=== PATIENT | female | born 1945 | race Caucasian/White ===

== ENCOUNTER 2020-06-04 15:15 | Outpatient (CLI) | payer MEDICARE, SELFPAY ==
--- NOTE | 2020-06-04 15:32 | US_ITS ---
WS: [id number] EXAM: THYROID SONOGRAM DATE OF EXAMINATION: 06/04/2020, 1541 hours COMPARISON: None. HISTORY: Hyperparathyroidism. FINDINGS: The thyroid gland is surgically absent. No evidence of adenopathy or mass in the surgical bed is iden tified. US/US thyroid [id number] IMPRESSION: No appreciable appearance of thyroid tissue or mass/adenopathy in the thyroid b ed.
== END 2020-06-04 15:16 | disposition home or self-care (01) ==
LOC: US 15:18
PROVIDERS: PCP Family Medicine; Visit Provider Family Medicine
DX: E21.3 Hyperparathyroidism, unspecified (principal)
CPT/HCPCS: 76536

== ENCOUNTER 2020-10-03 15:31 | Outpatient (CLI) | payer MEDICARE, SELFPAY ==
--- NOTE | 2020-10-03 15:37 | US_ITS ---
WS: [id number] ULTRASOUND RENAL TECHNIQUE: Ultrasound examination of both kidneys. CLINICAL INFORMATION: CHRONIC KIDNEY DISEASE, STAGE 3 COMPARISON: None. FINDINGS: RIGHT: Right kidney is normal in size and appearance. Echogenicity: Normal. Cortical thickness: 0.8 cm; Normal. Hydronephrosis: None. Perinephric fluid: None. Right kidney measures: 9.9 cm x 4.2 cm x 4.0 cm. LEFT: Left kidney is normal in size and appearance. Echogenicity: Normal. Cortical thickness: 1.1 cm; Normal. Hydronephrosis: None. Perinephric fluid: None. Left kidney measures: 11.2 cm x 5.7 cm x 4.4 cm. Normal visualized aorta. Bladder is decompressed US/US renal BI* [id number] IMPRESSION: Technically difficult examination due to body habitus. 1. No hydronephrosis in either kidney. 2. Bladder is decompressed.
== END 2020-10-03 15:32 | disposition home or self-care (01) ==
LOC: US 15:32
PROVIDERS: PCP Family Medicine; Visit Provider Internal Medicine Nephrology
DX: N18.31 Chronic kidney disease, stage 3a (principal)
CPT/HCPCS: 76770

== ENCOUNTER 2021-04-16 12:41 | Inpatient (IN) | payer MEDICARE, SELFPAY ==
[2021-04-16 14:37] VITALS: BP 109/63; PULSE 64; RESP 18; TEMP 36.6; O2SAT 85; BMI 48.0
--- NOTE | 2021-04-16 14:49 | XR_ITS ---
WS: [id number] XR chest 1V portable [id number] REASON FOR EXAM: SOB FINDINGS: Mild tortuosity the thoracic aorta without aneurysmal dilatation. The heart is at the upper limits of normal in size. Calcified granulomatous changes in both hemithoraces. No acute pulmonary parenchymal or pleural abnor mality is noted. Moderate degenerative spondylosis in the mid and lower thoracic spine. XR/XR chest 1V portable [id number] IMPRESSION: No acute chest abnormality.
--- NOTE | 2021-04-16 14:49 | ECG_ITS ---
[facility] ED Test Date: 2021-04-16 Pat Name: Bree Chapa Department: Room: Gender: Female Filling Hand: : 1945 Requested By: Anna Negrete Order Number: [id number] Charlene MD: Evlie Moreno M.D. Measurements Intervals [place] Rate: 63 P: 14 [place]: 188 QRS: 34 QRSD: 90 T: 73 QT: 416 QTc: 426 Interpretive Statements SINUS RHYTHM Compared to ECG 05/10/2019 18:06:25 Sinus bradycardia no longer present First degree AV block no longer present T-wave abnormality no longer present Electronically Signed On 04-20-2021 0:22:01 CDT by Elvie Moreno M.D. [id number]
--- NOTE | 2021-04-16 15:39 | W.ED.COVID ---
HPI - COVID General: Chief Complaint: Shortness of Breath/Dyspnea Stated Complaint: COVID+:LOW 02 (80s), SOB Time Seen by Provider: 04/16/21 15:19 Triage information: Has fever, cough or shortness of breath. Exposure to COVID + person last 14 days History of Present Illness: HPI Narrative: The patient is a 75-year-old female with past medical history hypertension and diabetes as well as thyroid disease. She comes to the ER complaining of shortness of breath and that her oxygen levels have been low at home in the upper 80s. She says she took a home Covid test 3 days ago which was positive and became sick on the initially. She recently finished a course of amoxicillin for a sinus infection but has not had any steroids. On arrival her oxygen saturation is 85% on room air. Placed on 3 L she is in the low 90s. MD complaint: known COVID positive Prior covid testing: yes, results known COVID 19 common symptoms: positive chills, dyspnea, fatigue and headache(s); negative throat pain, nasal congestion or diarrhea COVID 19 other sytmptoms: positive requiring oxygen; negative chest pain Onset (ago): day(s) (7) Severity: moderate Pertinent comorbid conditions: diabetes and hypertension COVID Results: SARS-CoV-2 Antigen (Rapid) Positive (Negative) H 04/16/21 16:47 04/16/21 Review of Systems General: Reports: 10 or more systems reviewed and unremarkable except in HPI and below Const: Reports: chills and fatigue Eyes: Denies: change in vision, blurry vision or eye redness ENMT: Denies: throat pain, swelling of lips/tongue, ear or mastoid pain or nasal congestion Card: Denies: chest pain, palpitations, irregular heart rhythm, edema, dyspnea on exertion or orthopnea Resp: Reports: dyspnea GI: Denies: abdominal pain, diarrhea or GI cramping : Denies: flank pain, difficulty voiding, urinary frequency or urinary urgency Musc: Denies: neck pain, back pain, extremity pain, joint pain, joint redness, limited range of motion or muscle weakness Skin/Breast: Denies: rash, pruritus, erythema, skin pain or skin tenderness Neuro: Reports: headache(s) Psych: Denies: anxiety or depression Endo: Denies: polyuria All/Imm: Denies: urticaria, throat swelling or tongue swelling PFSH ED PFSH: Medical History Ankle fracture Diabetes Gall bladder disease Sarcoidosis Thyroid disease Surgical History H/O hysterectomy for benign disease Family History Mother Dementia Father CAD (coronary artery disease) Social History Smoking and tobacco status: never smoked Alcohol intake: never Physical Exam Const: COMMON NORMALS: no acute distress, average body habitus, patient oriented x3, no limitations, healthy appearing, alert and well nourished GENERAL APPEARANCE: cooperative, comfortable, well kempt and well developed ORIENTATION/CONSCIOUSNESS: Yes awake, Yes oriented to person, Yes oriented to place and Yes oriented to time HENMT: COMMON NORMALS: normocephalic, external ears normal and Normal external nose present HEAD & SCALP: normal to inspection and normocephalic NOSE: Normal external nose present EXTERNAL EAR: Yes external ears normal MOUTH: Normal oral and palatal mucosa present THROAT: posterior oropharynx normal Eye: COMMON NORMALS: Equal, round and reactive pupils present and EOMs intact bilaterally GENERAL EYE: appearance normal, both eyes and all related structures PUPIL: Yes Equal, round and reactive pupils present Neck/C-Spine: COMMON NORMALS: full ROM, no lymphadenopathy, no meningeal signs and no JVD GENERAL: Yes normal visual inspection Lymph: LYMPHATIC: no lymphadenopathy noted Chest: COMMONS NORMALS: normal inspection of the chest and normal palpation of entire chest wall Resp: COMMON NORMALS: normal respiratory effort, No retractions, No use of accessory muscles, clear to auscultation bilaterally and percussion normal EFFORT & INSPECTION: Yes able to speak in complete sentences AUSCULTATION: clear to auscultation bilaterally PERCUSSION: percussion normal Cardio: COMMON NORMALS: no JVD, regular rate, regular rhythm, S1 normal heart sound present, S2 normal heart sound present and Peripheral pulses 2+ throughout RATE: regular rate RHYTHM: regular rhythm HEART SOUNDS: S1 normal heart sound present and S2 normal heart sound present PERIPHERAL PULSES: Peripheral pulses 2+ throughout GI: COMMON NORMALS: Normal to inspection, nondistended, normoactive bowel sounds present, Soft to palpation, non-tender and no masses INSPECTION: Yes normal to inspection PALPATION: Yes Soft to palpation : COMMON NORMALS: Yes no CVA tenderness BLADDER/KIDNEY EXAM: Yes no CVA tenderness Back/Pelvis: COMMON NORMALS: no CVA tenderness, thoracic and lumbar spine normal to inspection, no thoracic nor lumbar tenderness and thoraco-lumbar ROM normal Extremity: COMMON NORMALS: normal to inspection, full ROM, capillary refill normal, no joint enlargement and no pedal edema GENERAL: Yes normal exam except as noted Neuro: COMMON NORMALS: patient oriented x3, CN's II-XII intact bilaterally, moves all extremities, no focal motor deficits, no sensory deficits noted and gait normal SENSORIUM/ORIENTATION: Yes alert, Yes oriented to person, Yes oriented to place and Yes oriented to time MENINGEAL SIGNS: Yes no meningeal signs Psych: COMMON NORMALS: mental status grossly normal, Normal thought process present, cooperative, normal affect and speech normal APPEARANCE: Yes well kempt ATTITUDE: Yes calm SPEECH: Yes normal speech THOUGHT PROCESS: Normal thought process present Skin: COMMON NORMALS: no rashes or lesions noted GENERAL SKIN EXAM: no rashes or lesions noted Course Vital Signs: Vital signs: Vital Signs Temperature 97.9 F 04/16/21 14:37 Pulse Rate 67 04/16/21 16:27 Respiratory Rate 18 04/16/21 16:20 Blood Pressure 109/63 04/16/21 14:37 Pulse Oximetry 86 L 04/16/21 16:27 MDM - COVID MDM Narrative: Medical decision making narrative: Patient comes to the ER with Covid symptoms and has been positive as an outpatient. She is hypoxic requiring 4 L of oxygen. Discussed with Dr. Angel who accepts for admission. She also has abnormal labs sodium 123, creatinine 1.3, BUN 26. CT shows bilateral patchy airspace disease likely Covid pneumonia. Lab Data: Labs: Lab Results 04/16/21 04/16/21 04/16/21 Range/Units 15:28 16:10 16:10 WBC 6.7 (4.0-10.0) 10^3/ uL RBC 5.22 (4.1-5.3) 10^6/u L Hgb 14.8 (11.5-15.3) g/dL Hct 44.2 (37.0-47.0) % MCV 84.7 (81-99) fL MCH 28.4 (28.0-34.0) pg MCHC 33.5 (30.0-36.0) g/dL RDW 13.2 (12.1-15.1) % Plt Count 204 (130-400) 10^3/c mm MPV 11.4 H (7.4-10.4) fL Neut % (Auto) 85.0 % Lymph % (Auto) 9.0 % [place] % (Auto) 5.2 % Eos % (Auto) 0.0 % Baso % (Auto) 0.4 % Neut # (Auto) 5.67 (1.8-7.7) 10^3/u L Lymph # (Auto) 0.6 L (0.8-4.8) 10^3/u L [place] # (Auto) 0.4 (0.2-0.9) 10^3/u L Eos # (Auto) 0.0 (0.0-0.8) 10^3/u L Baso # (Auto) 0.0 (0.0-0.1) 10^3/u L Nucleated RBC % (a uto) 0 % Nucleated RBCs # 0.0 /100WBC Fibrinogen 569 H (174-498) mg/dL D-Dimer 1.37 H (0-0.59) ug/mIFE U Specimen Type Arterial Sample Site Radial, right ABG pH 7.44 (7.35-7.45) ABG pCO2 30.8 L (35-45) mmHg ABG pO2 57.7 L (80.0-100.0) mmH g ABG HCO3 20.7 L (22-26) mmol/L ABG Base Excess -2.4 L (-2.0-2.0) mmol/ L Johnson Test Pos Hematocrit 45.0 (37-47) % O2 Delivery Device Nc O2 Liters/Min 3.0 % FiO2 32.0 % Surgery Technician ID [place] Sodium (136-145) mmol/L Potassium (3.5-5.1) mmol/L Chloride (98-107) mmol/L Carbon Dioxide (22-29) mmol/L Anion Gap (5-19) BUN (8-23) mg/dL Creatinine (0.5-0.9) mg/dL GFR Calculation Glucose (65-115) mg/dL Calculated Osmolal ity (285-295) mOsm/k g Lactic Acid (0.5-2.2) mmol/L Calcium (8.5-10.5) mg/dL Total Bilirubin (0.15-1.2) mg/dL AST (0-32) U/L ALT (0-33) U/L Alkaline Phosphata se (35-105) IU/L Troponin T Gen 5 n g/L (0-10) ng/L C-Reactive Protein (0.0-4.9) mg/L NT-Pro-B Natriuret Pep (0-125) pg/mL Total Protein (6.6-8.7) g/dL Albumin (3.5-5.2) g/dL Globulin (1.3-4.6) g/dL Procalcitonin (0-0.5) ng/mL SARS-CoV-2 Ag (Rap id) (Negative) 04/16/21 04/16/21 04/16/21 Range/Units 16:10 16:10 16:10 WBC (4.0-10.0) 10^3/ uL RBC (4.1-5.3) 10^6/u L Hgb (11.5-15.3) g/dL Hct (37.0-47.0) % MCV (81-99) fL MCH (28.0-34.0) pg MCHC (30.0-36.0) g/dL RDW (12.1-15.1) % Plt Count (130-400) 10^3/c mm MPV (7.4-10.4) fL Neut % (Auto) % Lymph % (Auto) % [place] % (Auto) % Eos % (Auto) % Baso % (Auto) % Neut # (Auto) (1.8-7.7) 10^3/u L Lymph # (Auto) (0.8-4.8) 10^3/u L [place] # (Auto) (0.2-0.9) 10^3/u L Eos # (Auto) (0.0-0.8) 10^3/u L Baso # (Auto) (0.0-0.1) 10^3/u L Nucleated RBC % (a uto) % Nucleated RBCs # /100WBC Fibrinogen (174-498) mg/dL D-Dimer (0-0.59) ug/mIFE U Specimen Type Sample Site ABG pH (7.35-7.45) ABG pCO2 (35-45) mmHg ABG pO2 (80.0-100.0) mmH g ABG HCO3 (22-26) mmol/L ABG Base Excess (-2.0-2.0) mmol/ L Johnson Test Hematocrit (37-47) % O2 Delivery Device O2 Liters/Min % FiO2 % Surgery Technician ID Sodium 123 L (136-145) mmol/L Potassium 3.8 (3.5-5.1) mmol/L Chloride 87 L (98-107) mmol/L Carbon Dioxide 22 (22-29) mmol/L Anion Gap 17.8 (5-19) BUN 26 H (8-23) mg/dL Creatinine 1.3 H (0.5-0.9) mg/dL GFR Calculation Not Reportable Glucose 150 H (65-115) mg/dL Calculated Osmolal ity 264 L (285-295) mOsm/k g Lactic Acid 1.2 (0.5-2.2) mmol/L Calcium 7.8 L (8.5-10.5) mg/dL Total Bilirubin 0.3 (0.15-1.2) mg/dL AST 42 H (0-32) U/L ALT 20 (0-33) U/L Alkaline Phosphata se 72 (35-105) IU/L Troponin T Gen 5 n g/L 42 H (0-10) ng/L C-Reactive Protein 172.0 H (0.0-4.9) mg/L NT-Pro-B Natriuret Pep 532 H (0-125) pg/mL Total Protein 6.5 L (6.6-8.7) g/dL Albumin 3.7 (3.5-5.2) g/dL Globulin 2.8 (1.3-4.6) g/dL Procalcitonin 0.33 (0-0.5) ng/mL SARS-CoV-2 Ag (Rap id) (Negative) 04/16/21 Range/Units 16:47 WBC (4.0-10.0) 10^3/ uL RBC (4.1-5.3) 10^6/u L Hgb (11.5-15.3) g/dL Hct (37.0-47.0) % MCV (81-99) fL MCH (28.0-34.0) pg MCHC (30.0-36.0) g/dL RDW (12.1-15.1) % Plt Count (130-400) 10^3/c mm MPV (7.4-10.4) fL Neut % (Auto) % Lymph % (Auto) % [place] % (Auto) % Eos % (Auto) % Baso % (Auto) % Neut # (Auto) (1.8-7.7) 10^3/u L Lymph # (Auto) (0.8-4.8) 10^3/u L [place] # (Auto) (0.2-0.9) 10^3/u L Eos # (Auto) (0.0-0.8) 10^3/u L Baso # (Auto) (0.0-0.1) 10^3/u L Nucleated RBC % (a uto) % Nucleated RBCs # /100WBC Fibrinogen (174-498) mg/dL D-Dimer (0-0.59) ug/mIFE U Specimen Type Sample Site ABG pH (7.35-7.45) ABG pCO2 (35-45) mmHg ABG pO2 (80.0-100.0) mmH g ABG HCO3 (22-26) mmol/L ABG Base Excess (-2.0-2.0) mmol/ L Johnson Test Hematocrit (37-47) % O2 Delivery Device O2 Liters/Min % FiO2 % Surgery Technician ID Sodium (136-145) mmol/L Potassium (3.5-5.1) mmol/L Chloride (98-107) mmol/L Carbon Dioxide (22-29) mmol/L Anion Gap (5-19) BUN (8-23) mg/dL Creatinine (0.5-0.9) mg/dL GFR Calculation Glucose (65-115) mg/dL Calculated Osmolal ity (285-295) mOsm/k g Lactic Acid (0.5-2.2) mmol/L Calcium (8.5-10.5) mg/dL Total Bilirubin (0.15-1.2) mg/dL AST (0-32) U/L ALT (0-33) U/L Alkaline Phosphata se (35-105) IU/L Troponin T Gen 5 n g/L (0-10) ng/L C-Reactive Protein (0.0-4.9) mg/L NT-Pro-B Natriuret Pep (0-125) pg/mL Total Protein (6.6-8.7) g/dL Albumin (3.5-5.2) g/dL Globulin (1.3-4.6) g/dL Procalcitonin (0-0.5) ng/mL SARS-CoV-2 Ag (Rap id) Positive H (Negative) COVID Results: SARS-CoV-2 Antigen (Rapid) Positive (Negative) H 04/16/21 16:47 04/16/21 Discharge Plan Discharge Patient Disposition: Admitted As Inpatient Clinical Impression: COVID-19, Hypoxia Condition: Stable Coding Level of Care Code 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
[2021-04-16 15:53] LABS: ABG PCO2 30.8 mmHg (35-45); ABG PH Result 7.44 (7.35-7.45); Base Excess ABG -2.4 mmol/L (-2.0-2.0); Blood Gas Allen Test Pos; Blood Gas Operator Identificat MONRO; Blood Gas Sample Site Radial, right; Blood Gas Sample Type Arterial; HCO3 ABG 20.7 mmol/L (22-26); Oxygen Device NC; PO2 ABG 57.7 mmHg (80.0-100.0)
[2021-04-16 16:20] VITALS: PULSE 69; RESP 18; O2SAT 90
[2021-04-16] MEDS: albuterol 8 gm MDI 2 PUFF INHALATION (16:20)
[2021-04-16 16:27] VITALS: PULSE 67; O2SAT 86
[2021-04-16] MEDS: dexamethasone 4 mg/mL INJ 6 MG IVP (16:43)
[2021-04-16 16:54] LABS: Basophils % 0.4 %; Hematocrit 44.2 % (37.0-47.0); Hemoglobin 14.8 g/dL (11.5-15.3); Lymphocytes # 0.6 10^3/uL (0.8-4.8); Mean Corpuscular HGB Conc 33.5 g/dL (30.0-36.0); Mean Corpuscular Hemoglobin 28.4 pg (28.0-34.0); Mean Corpuscular Volume 84.7 fL (81-99); Mean Platelet Volume 11.4 fL (7.4-10.4); Monocytes # 0.4 10^3/uL (0.2-0.9); Monocytes % 5.2 %; Neutrophils # 5.67 10^3/uL (1.8-7.7); Nucleated Red Blood Cells % 0 %; Platelet Count 204 10^3/cmm (130-400); Red Blood Count 5.22 10^6/uL (4.1-5.3); Red Cell Distribution Width 13.2 % (12.1-15.1); White Blood Count 6.7 10^3/uL (4.0-10.0)
[2021-04-16 17:00] LABS: Fibrinogen 569 mg/dL (174-498); Lactic Sepsis W/Reflex 1.2 mmol/L (0.5-2.2); Troponin T (5th) Once 42 ng/L (0-10)
[2021-04-16 17:03] LABS: D Dimer 1.37 ug/mIFEU (0-0.59)
[2021-04-16 17:05] LABS: NT Pro B Type Natriuretic Pept 532 pg/mL (0-125); Procalcitonin 0.33 ng/mL (0-0.5)
[2021-04-16 17:17] LABS: Alanine Aminotransferase 20 U/L (0-33); Albumin Level 3.7 g/dL (3.5-5.2); Alkaline Phosphatase 72 IU/L (35-105); Anion Gap 17.8 (5-19); Aspartate Amino Transferase 42 U/L (0-32); Blood Urea Nitrogen 26 mg/dL (8-23); Calcium 7.8 mg/dL (8.5-10.5); Carbon Dioxide 22 mmol/L (22-29); Chloride 87 mmol/L (98-107); Globulin 2.8 g/dL (1.3-4.6); Glucose 150 mg/dL (65-115); Osmolality Calculated 264 mOsm/kg (285-295); Potassium 3.8 mmol/L (3.5-5.1); Sodium 123 mmol/L (136-145); Total Bilirubin 0.3 mg/dL (0.15-1.2); Total Protein 6.5 g/dL (6.6-8.7)
[2021-04-16] MEDS: sodium chloride 0.9% 1,000 ML 999 ML IV (17:46)
[2021-04-16 17:58] LABS: SARS Covid-2 Antigen Positive (Negative)
--- NOTE | 2021-04-16 18:09 | CTR_ITS ---
PROCEDURE INFORMATION: Exam: CTA Chest With Contrast Exam date and time: 04/16/2021 6:09 PM Age: 75 years old Clinical indication: Cough and shortness of breath; Additional info: Dyspnea. Pe? Covid+ TECHNIQUE: Imaging protocol: Computed tomographic angiography of the chest with contrast. 3D rendering (Not supervised by radiologist): MIP and/or 3D reconstructed images were created by the technologist. Radiation optimization: All CT scans at this facility use at least one of these dose optimization techniques: automated exposure control; mA and/or kV adjustment per patient size (includes targeted exams where dose is matched to clinical indication); or iterative reconstruction. Contrast material: VISI 320; Contrast volume: 69 ml; Contrast route: INTRAVENOUS (IV); COMPARISON: CR XR chest 1V portable [id number] 04/16/2021 3:30 PM RADIATION DOSE METRICS: Total DLP (mGy-cm): 568.11 FINDINGS: Pulmonary arteries: Normal. No pulmonary emboli. Aorta: Unremarkable. No aortic aneurysm. No aortic dissection. Lungs: Patchy bilateral airspace opacities likely reflecting an infectious process. Pleural spaces: Unremarkable. No pneumothorax. No pleural effusion. Heart: Coronary artery atherosclerotic calcifications. Lymph nodes: Unremarkable. No enlarged lymph nodes. Bones/joints: Unremarkable. No acute fracture. Soft tissues: Unremarkable. CT/CT angio chest PE protcl [id number] IMPRESSION: 1. Negative for pulmonary embolus 2. Patchy bilateral airspace opacities likely reflecting an infectious process. 3. Coronary artery atherosclerotic calcifications. Radiation Dose CTDIVOL = (mGy): DLP = 568.11 (mGy-cm)
[2021-04-16] MEDS: iodixanol 320 mg/mL 100mL Btl IV (18:36)
[2021-04-16] MEDS: remdesivir 200 MG in sodium chloride 0.9% (100 ml) 100 ML 100 MG IV (18:38)
[2021-04-16] MEDS: levofloxacin-dextrose 5 % 750 MG/150 ML PREMIX 100 MG IV (18:38)
--- NOTE | 2021-04-16 23:49 | PM.HP ---
Providers/Chief Complaint Primary Care Provider: Lee Youssef DO Chief Complaint: COVID+:LOW 02 (80s), SOB History of Present Illness Bree Chapa is a 75 year old female with a past medical history as outlined below, presented to the ER today due to shortness of breath. She was diagnosed with Covid after she took a home antigen test 3 days ago and there again today was tested positive on the rapid antigen. She complained of hypoxia down to low 80s at home, subjective shortness of breath therefore presented to the ER. Chest x-ray showed bilateral infiltrates consistent with COVID-19, CRP elevated at 170, hyponatremia 123. Is currently on supplemental O2 at 4 L/min saturating 89 to 90%. Past history of sleep apnea present, uses CPAP at home. Denies chest pain or palpitations at this time. Review of Systems General: Reports: 10 or more systems reviewed and unremarkable except in HPI and below Const: Denies: fever(s), chills or body aches Eyes: Denies: change in vision, blurry vision or photophobia ENMT: Denies: throat pain, enlarged tonsils, odynophagia or nasal congestion Card: Denies: chest pain, palpitations, irregular heart rhythm, edema, swelling of feet/ankles, lightheadedness, pre-syncope, dyspnea on exertion or orthopnea Resp: Reports: dyspnea and non-productive cough; Denies: wheezing, stridor, pain on inspiration, change in phlegm color, hemoptysis or chest congestion GI: Denies: abdominal pain, nausea, vomiting, hematemesis, coffee ground emesis, dysphagia, heartburn, diarrhea, constipation, GI cramping, change in stool character, hematochezia or melena : Denies: flank pain, difficulty voiding, dysuria, urinary frequency, urinary urgency, urinary hesitancy or hematuria Musc: Denies: neck pain, back pain, extremity pain, joint swelling, joint warmth or deformity Neuro: Denies: headache(s), numbness in extremities, weakness in extremities, sensory changes, difficulty walking, frequent falls, dizziness, vertigo, behavioral changes, Slurred speech present or seizure-like activity Psych: Denies: anxiety, depression, suicidal ideation or homicidal ideation Endo: Denies: polyuria, polydipsia, tired all the time, cold intolerance or hot flashes [place]/Lymph: Denies: easy bruising or easy bleeding Medications/Allergies Home Medications Medication Instructions Recorded Confirmed Last Taken Type amlodipine 10 mg tablet 10 mg PO DAILY 07/08/20 04/16/21 04/16/21 History chlorthalidone 25 mg tablet 25 mg PO DAILY 07/08/20 04/16/21 04/16/21 History levothyroxine 175 mcg capsule 175 mcg PO Q2D 07/08/20 04/16/21 04/16/21 History Diabetic Shoe with molded inserts #1 ea NS 07/16/20 04/16/21 Unknown Rx Occuvite Vitamins 1 tab PO DAILY 04/16/21 04/16/21 04/16/21 History acetaminophen 1,000 mg PO TID 04/16/21 04/16/21 04/16/21 History ascorbic acid (vitamin C) [Vitamin 250 mg PO DAILY 04/16/21 04/16/21 04/16/21 History C] aspirin [Aspir-81] 81 mg PO DAILY 04/16/21 04/16/21 04/16/21 History carboxymethylcellulose sodium 4 drp OPHTHALMIC (EYE) DAILY 04/16/21 04/16/21 04/15/21 History [Refresh Tears] cholecalciferol (vitamin D3) 50 mcg PO DAILY 04/16/21 04/16/21 04/16/21 History [Vitamin D3] clonidine HCl 0.5 mg PO PRN 04/16/21 04/16/21 Unknown History fluoxetine 20 mg PO DAILY 04/16/21 04/16/21 04/16/21 History levothyroxine 150 mcg PO Q2D 04/16/21 04/16/21 04/15/21 History losartan 50 mg PO BID 04/16/21 04/16/21 04/16/21 History magnesium oxide 250 mg PO DAILY 04/16/21 04/16/21 04/16/21 History zinc 100 mg PO DAILY 04/16/21 04/16/21 04/16/21 History Allergies Allergy/AdvReac Type Severity Reaction Status Date / Time azithromycin Allergy Unknown Verified 04/16/21 18:43 [From Zithromax Z-Yassine] codeine Allergy ADR-Dizzine Verified 04/16/21 18:39 ss hydrochlorothiazide Allergy Unknown Verified 04/16/21 18:40 metformin Allergy ADR-Diarrhe Verified 10/14/20 10:33 a Pogbqao-Erv-Hkc Reductase Allergy ADR-Fatigue Verified 10/14/20 10:33 Inhibitor d Tetracyclines Allergy Unknown Verified 04/16/21 18:42 tramadol Allergy ADR-Dizzine Verified 04/16/21 18:42 ss PFSH Acute PFSH: Medical History Ankle fracture Diabetes Gall bladder disease Sarcoidosis Thyroid disease Surgical History H/O hysterectomy for benign disease Family History Mother Dementia Father CAD (coronary artery disease) Social History Smoking and tobacco status: never smoked Alcohol intake: never Vitals/I&O/Wt Last Vital Signs Temp 97.9 F 04/16/21 14:37 Pulse 67 04/16/21 16:27 Resp 18 04/16/21 16:20 BP 109/63 04/16/21 14:37 Pulse Ox 86 L 04/16/21 16:27 Weight last 48 hrs Weight 127.006 kg Physical Exam Narrative: EXAM NARRATIVE: General: No acute distress, AO x3 HEENT: PERRLA, pupils bilaterally equal and reactive, pallors not present Chest: Normal vesicular breath sounds, no added sounds, equal good air entry bilaterally CVS: S1-S2 regular, no murmurs, no tachycardia, no gallops, no rubs Abdomen: Soft, nontender, no organomegaly, bowel sounds present Neuro: No focal deficits, no facial deformity, AO x3, power 5/5 in all limbs Extremities: B/l LE non pitting edema, chronic per patient Data : 04/16/21 16:10 04/16/21 16:10 A&P Assessment and plan (1) COVID-19: Remdisivir 200mg iv x 1 followed by 100mg iv daily dexamethasone 6mg IVP daily duoneb q6h, budesonide q12h empiric levaquin Flutter valve/spirometer at bedside trend inflammatory markers including CRP, LDH, D dimer, Ferritin CTA PE to evalaute for PE negative Status: Acute (2) Hypoxia: As a result of COVID 19 pneumonia Status: Acute (3) Hyponatremia: 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
[2021-04-17] VITALS (12 sets, daily range): BP systolic 113–144; BP diastolic 54–68; PULSE 62–89; RESP 14–28; TEMP 36.7–37; O2SAT 77–94
[2021-04-17] MEDS: enoxaparin 40 mg/0.4 mL Syringe SUBCUT (01:23)
[2021-04-17 02:27] LABS: Potassium, Radom Urine 34 mmol/L; Urine Random Chloride 30 mmol/L; Urine Random Sodium 56 mmol/L
[2021-04-17 05:54] LABS: Hematocrit 42.4 % (37.0-47.0); Hemoglobin 14.3 g/dL (11.5-15.3); Lymphocytes # 0.5 10^3/uL (0.8-4.8); Mean Corpuscular HGB Conc 33.7 g/dL (30.0-36.0); Mean Corpuscular Hemoglobin 28.8 pg (28.0-34.0); Mean Corpuscular Volume 85.3 fL (81-99); Mean Platelet Volume 11.2 fL (7.4-10.4); Monocytes # 0.4 10^3/uL (0.2-0.9); Monocytes % 6.3 %; Nucleated Red Blood Cells % 0 %; Platelet Count 182 10^3/cmm (130-400); Red Blood Count 4.97 10^6/uL (4.1-5.3); Red Cell Distribution Width 13.2 % (12.1-15.1); White Blood Count 5.9 10^3/uL (4.0-10.0)
[2021-04-17 06:01] LABS: D Dimer 1.16 ug/mIFEU (0-0.59)
[2021-04-17 06:08] LABS: C Reactive Protein 182.4 mg/L (0.0-4.9); Ferritin 809 ng/mL (15-150); Lactate Dehydrogenase 409 U/L (135-214)
[2021-04-17 06:12] LABS: Alanine Aminotransferase 22 U/L (0-33); Alkaline Phosphatase 62 IU/L (35-105); Aspartate Amino Transferase 47 U/L (0-32); Blood Urea Nitrogen 29 mg/dL (8-23); Calcium 7.5 mg/dL (8.5-10.5); Carbon Dioxide 19 mmol/L (22-29); Chloride 92 mmol/L (98-107); Globulin 3.4 g/dL (1.3-4.6); Glucose 190 mg/dL (65-115); Osmolality Calculated 271 mOsm/kg (285-295); Sodium 125 mmol/L (136-145); Total Bilirubin 0.3 mg/dL (0.15-1.2); Total Protein 6.4 g/dL (6.6-8.7)
[2021-04-17 06:27] LABS: Glucose Point of Care 160 mg/dL (70-110)
[2021-04-17] MEDS: fluoxetine 20 mg Capsule PO (08:11)
[2021-04-17] MEDS: amlodipine 10 mg Tablet PO (08:11)
[2021-04-17] MEDS: aspirin 81 mg EC Tablet PO (08:11)
[2021-04-17] MEDS: pantoprazole DR 40 mg Tablet PO (08:12)
[2021-04-17] MEDS: levoFLOXacin 750 mg Tablet PO (08:12)
[2021-04-17] MEDS: levothyroxine 150 mcg Tablet PO (08:12)
[2021-04-17] MEDS: budesonide 0.5 mg/2 mL Neb INHALATION (08:46)
[2021-04-17] MEDS: ipratropium-albuterol 3 mL Neb INHALATION ×2 (08:46→15:43)
[2021-04-17 11:06] LABS: Glucose Point of Care 142 mg/dL (70-110)
[2021-04-17] MEDS: ondansetron 2 mg/ML SDV 2 mL 4 MG IVP (15:03)
[2021-04-17 17:05] LABS: Glucose Point of Care 155 mg/dL (70-110)
[2021-04-17] MEDS: dexamethasone 4 mg/mL INJ 6 MG IVP (18:07)
[2021-04-17] MEDS: remdesivir 100 MG in sodium chloride 0.9% (100 ml) 100 ML IV (18:34)
[2021-04-17 21:38] LABS: Glucose Point of Care 219 mg/dL (70-110)
--- NOTE | 2021-04-17 22:11 | P.PN_ITS ---
Subjective Subjective: Interval history: uncomfortable and short of breath. Having trouble getting to bedside commode Vitals/I&O/Wt Last Vital Signs Temp 98.1 F 04/17/21 20:00 Pulse 89 04/17/21 20:48 Resp 24 H 04/17/21 20:48 BP 144/66 04/17/21 20:00 Pulse Ox 77 L 04/17/21 20:48 04/17/21 04/17/21 04/17/21 06:59 14:59 22:59 Intake Total 1250 / 1250 360 / 360 200 / 560 Output Total 300 / 300 Balance 950 / 950 360 / 360 200 / 560 Weight last 48 hrs Weight 127.006 kg Physical Exam Narrative: EXAM NARRATIVE: Elderly obese lady laying in bed appearing un comfortable H: reg without loud mumur L: diminihsed with scattered crackles A: obese soft nt/nd nl BS E: no pitting edema Urinary Catheter Management^: Jean: Cath Placed During This Visit: yes Reason for Continuing Indwelling Catheter: Other Urinary Catheter Date of Insertion: 04/17/21 Urinary Catheter Time of Insertion: 14:36 Data : 04/17/21 05:26 04/17/21 05:26 A&P Assessment and plan (1) COVID-19: Remdisivir 200mg iv x 1 followed by 100mg iv daily dexamethasone 6mg IVP daily duoneb q6h, budesonide q12h empiric levaquin Flutter valve/spirometer at bedside trend inflammatory markers including CRP, LDH, D dimer, Ferritin CTA PE is negative Discussed risk/benefits of Actemra with pt: might not improve symptoms could make underlying infection that hasn't been identified worse. Pt agreeable. 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 Check urine lites, urine osmolality Hold chlorthalidone Status: Acute Additional A&P Information DVT ppx: lovenox PUD ppx: protonix Full code Attestations Medical Necessity Statement*: hospitaliztion required for severe COVID pn eumonia. 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
[2021-04-17 23:07] LABS: Troponin T (5th) Once 34 ng/L (0-10)
[2021-04-18] VITALS (15 sets, daily range): BP systolic 109–132; BP diastolic 55–71; PULSE 60–79; RESP 16–30; TEMP 36.5–36.9; O2SAT 92–99
--- NOTE | 2021-04-18 00:08 | PC.NURSE ---
0000 VITALS TAKEN BY Sundeep GARCIA LPN SHOWED PATIENT OXYGEN SATURATION LEVEL AT 85% ON HIGH FLOW. CHANGE OF POSITION, TURNING HEAD AND COUGHING DID NOT IMPROVE SATURATION LEVELS, THIS NURSE WAS THEN NOTIFIED OF OF PATIENTS VITALS SIGNS AND STATUS, WENT AND ASSESSED PATIENT WHO WAS SATING AT 84% AND SHOWING NO SIGNS OF DISTRESS. THIS NURSE CALLED ELLIE GARVEY AND DR. BARROS. ORDERS GIVEN VIA PHONE FOR HEATED HIGH FLOW. HEATED HIGH FLOW WAS PUT ON PATIENT, OXYGEN SATURATION LEVELS IMPROVED TO 87% WITHIN MINUTES OF ADMINISTRATION. WILL CONTINUE TO MONITOR.
[2021-04-18] MEDS: enoxaparin 40 mg/0.4 mL Syringe SUBCUT (03:40)
[2021-04-18] MEDS: ipratropium-albuterol 3 mL Neb INHALATION ×4 (04:01→23:23)
[2021-04-18 06:59] LABS: Glucose Point of Care 231 mg/dL (70-110)
[2021-04-18] MEDS: budesonide 0.5 mg/2 mL Neb INHALATION ×2 (08:21→23:23)
[2021-04-18 11:03] LABS: Glucose Point of Care 240 mg/dL (70-110)
[2021-04-18] MEDS: amlodipine 10 mg Tablet PO (11:06)
[2021-04-18] MEDS: fluoxetine 20 mg Capsule PO (11:06)
[2021-04-18] MEDS: pantoprazole DR 40 mg Tablet PO (11:06)
[2021-04-18] MEDS: levothyroxine 150 mcg Tablet PO (11:06)
[2021-04-18] MEDS: levoFLOXacin 750 mg Tablet PO (11:06)
[2021-04-18] MEDS: aspirin 81 mg EC Tablet PO (11:07)
[2021-04-18 14:09] LABS: Anion Gap 19.9 (5-19); Blood Urea Nitrogen 37 mg/dL (8-23); Calcium 7.8 mg/dL (8.5-10.5); Carbon Dioxide 19 mmol/L (22-29); Chloride 91 mmol/L (98-107); Creatinine Clr Calc Pharmacy 54.2965; Glucose 219 mg/dL (65-115); Osmolality Calculated 277 mOsm/kg (285-295); Potassium 3.9 mmol/L (3.5-5.1); Sodium 126 mmol/L (136-145)
--- NOTE | 2021-04-18 14:09 | P.PN_ITS ---
Subjective Subjective: Interval history: seen with high flow NC and blue lips and fingers while trying to eat. no appetite. anxious. Vitals/I&O/Wt Last Vital Signs Temp 97.7 F 04/18/21 11:27 Pulse 63 04/18/21 11:27 Resp 20 H 04/18/21 11:27 BP 109/67 04/18/21 11:27 Pulse Ox 99 04/18/21 11:27 04/17/21 04/18/21 04/18/21 22:59 06:59 14:59 Intake Total 200 / 560 240 / 240 Output Total 550 / 550 Balance 200 / 560 -550 / 10 240 / 240 Weight last 48 hrs Weight 127.006 kg Physical Exam Narrative: EXAM NARRATIVE: Elderly obese slightly anxious without any energy, hardly moving but awake. Uncomfortable. Pulse ox 65%. Called RN and replaced BIPAP and quickly returned to mid 80* and then on up. H: reg without loud mumur L: severely diminihsed with scattered crackles A: obese soft nt/nd nl BS E: no pitting edema Urinary Catheter Management^: Jean: Cath Placed During This Visit: yes Reason for Continuing Indwelling Catheter: Other Urinary Catheter Date of Insertion: 04/17/21 Urinary Catheter Time of Insertion: 14:36 Data : 04/17/21 05:26 04/18/21 11:52 A&P Assessment and plan (1) COVID-19: Remdisivir 200mg iv x 1 followed by 100mg iv daily dexamethasone 6mg IVP daily duoneb q6h, budesonide q12h empiric levaquin Flutter valve/spirometer at bedside RECEIVED ACTEMRA Status: Acute (2) Hypoxia: As a result of COVID 19 pneumonia Status: Acute (3) Hyponatremia: WILL TREND likely as result of pneumonia, SIADH,- FLUID RESTRICTION. PT UNABLE TO EAT WITHOUT BECOMING HYPOXIC. LIQUID PROTEIN DRINKS THROUGH STRAW THROUGH MASK Hold chlorthalidone Status: Acute Additional A&P Information DVT ppx: lovenox PUD ppx: protonix Full code Attestations Medical Necessity Statement*: hospitaliztion required for severe COVID pneumonia. Coding Level of Care Code Acute [employer] Certified Internetwork Expert for [facility] Fw Diagnoses COVID-19 U07.1 Hypoxia R09.02 Hyponatremia E87.1
[2021-04-18] MEDS: famotidine 20 mg/2 mL INJ IVP (15:41)
[2021-04-18 16:58] LABS: Glucose Point of Care 247 mg/dL (70-110)
[2021-04-18] MEDS: dexamethasone 4 mg/mL INJ 6 MG IVP (17:41)
[2021-04-18] MEDS: remdesivir 100 MG in sodium chloride 0.9% (100 ml) 100 ML IV (18:16)
--- NOTE | 2021-04-18 18:16 | PC.NUTR ---
NUTR CONSULT: Consult received for low lactose supplement. Ensure/glucerna, clear liquids are lactose free. Consult does not indicate a need for assessment. Will cont to monitor progress and assess appropriately.
--- NOTE | 2021-04-18 18:34 | PC.NURSE ---
Summary Remains on Bipap today. Sats did drop to upper 60's when attempting to eat lunch. Dr aware. Jean remains without difficulty. Has taken sips of drinks with bipap on then quickly back on. Pt was informed today that was going to be admitted but he did end up going home, pt aware.
[2021-04-18] MEDS: pantoprazole 40 mg SDV IVP (20:39)
[2021-04-18 20:56] LABS: Glucose Point of Care 248 mg/dL (70-110)
[2021-04-19] VITALS (18 sets, daily range): BP systolic 115–131; BP diastolic 55–68; PULSE 69–86; RESP 18–32; TEMP 36.4–36.8; O2SAT 91–98
[2021-04-19] MEDS: enoxaparin 40 mg/0.4 mL Syringe SUBCUT (01:16)
[2021-04-19] MEDS: ipratropium-albuterol 3 mL Neb INHALATION ×4 (04:21→20:15)
[2021-04-19 06:33] LABS: Basophils % 0.3 %; Hematocrit 43.3 % (37.0-47.0); Hemoglobin 14.5 g/dL (11.5-15.3); Lymphocytes # 0.5 10^3/uL (0.8-4.8); Lymphocytes % 6.3 %; Mean Corpuscular HGB Conc 33.5 g/dL (30.0-36.0); Mean Corpuscular Hemoglobin 28.2 pg (28.0-34.0); Mean Corpuscular Volume 84.1 fL (81-99); Mean Platelet Volume 11.2 fL (7.4-10.4); Monocytes # 0.5 10^3/uL (0.2-0.9); Monocytes % 6.7 %; Neutrophils # 6.08 10^3/uL (1.8-7.7); Neutrophils % 84.9 %; Nucleated Red Blood Cells % 0 %; Platelet Count 260 10^3/cmm (130-400); Red Blood Count 5.15 10^6/uL (4.1-5.3); Red Cell Distribution Width 13.2 % (12.1-15.1); White Blood Count 7.2 10^3/uL (4.0-10.0)
[2021-04-19 07:04] LABS: Anion Gap 16.8 (5-19); Blood Urea Nitrogen 38 mg/dL (8-23); Calcium 7.6 mg/dL (8.5-10.5); Carbon Dioxide 20 mmol/L (22-29); Chloride 90 mmol/L (98-107); Creatinine Clr Calc Pharmacy 54.2965; Glucose 312 mg/dL (65-115); Osmolality Calculated 277 mOsm/kg (285-295); Potassium 3.8 mmol/L (3.5-5.1); Sodium 123 mmol/L (136-145)
[2021-04-19 08:06] LABS: Glucose Point of Care 289 mg/dL (70-110)
[2021-04-19] MEDS: budesonide 0.5 mg/2 mL Neb INHALATION ×2 (08:20→20:15)
[2021-04-19] MEDS: levothyroxine 150 mcg Tablet PO (08:33)
[2021-04-19] MEDS: levoFLOXacin 750 mg Tablet PO (08:33)
[2021-04-19] MEDS: pantoprazole 40 mg SDV IVP ×2 (08:33→21:29)
[2021-04-19] MEDS: fluoxetine 20 mg Capsule PO (08:33)
[2021-04-19] MEDS: aspirin 81 mg EC Tablet PO (08:33)
[2021-04-19] MEDS: amlodipine 10 mg Tablet PO (08:33)
[2021-04-19] MEDS: dextrose 5%-sod chloride 0.9% 1,000 ML 50 ML IV (09:50)
[2021-04-19 11:20] LABS: Glucose Point of Care 284 mg/dL (70-110)
[2021-04-19] MEDS: acetaminophen 325 mg Tablet 650 MG PO (14:41)
[2021-04-19 17:21] LABS: Glucose Point of Care 222 mg/dL (70-110)
[2021-04-19] MEDS: dexamethasone 4 mg/mL INJ 6 MG IVP (18:02)
--- NOTE | 2021-04-19 18:03 | P.PN_ITS ---
Subjective Subjective: Interval history: Pt doing better on BIPAP today. I personally feed pt Boost plus while in room and untied BIPAP for a few minutes. Tolerated well. Vitals/I&O/Wt Last Vital Signs Temp 98.3 F 04/19/21 12:00 Pulse 86 04/19/21 15:32 Resp 20 H 04/19/21 15:31 BP 115/68 04/19/21 12:00 Pulse Ox 94 04/19/21 15:32 04/19/21 04/19/21 04/19/21 06:59 14:59 22:59 Intake Total 480 / 480 Output Total 600 / 600 Balance -600 / 220 480 / 480 Physical Exam Narrative: EXAM NARRATIVE: Elderly obese less anxious; limited energy, Looks uncomfortable H: reg without loud mumur L: severely diminihsed with scattered crackles A: obese soft nt/nd nl BS E: no pitting edema Urinary Catheter Management^: Jean: Cath Placed During This Visit: yes Reason for Continuing Indwelling Catheter: Accurate Measurement of Urinary Output in Critically Ill Patients Urinary Catheter Date of Insertion: 04/17/21 Urinary Catheter Time of Insertion: 14:36 Data : 04/19/21 05:25 04/19/21 05:25 A&P Assessment and plan (1) COVID-19: Remdisivir 200mg iv x 1 followed by 100mg iv daily dexamethasone 6mg IVP daily duoneb q6h, budesonide q12h empiric levaquin Flutter valve/spirometer at bedside RECEIVED ACTEMRA on 04/17 ( 2 days ago) Status: Acute (2) Hypoxia: As a result of COVID 19 pneumonia Status: Acute (3) Hyponatremia: WILL TREND - a bit lower today. start min fluids. likely as result of pneumonia, SIADH,- FLUID RESTRICTION. PT UNABLE TO EAT WITHOUT BECOMING HYPOXIC. LIQUID PROTEIN DRINKS THROUGH STRAW THROUGH MASK Asked discharge door operator to have someone help feed her. 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
[2021-04-19] MEDS: remdesivir 100 MG in sodium chloride 0.9% (100 ml) 100 ML IV (20:42)
[2021-04-19 21:04] LABS: Glucose Point of Care 227 mg/dL (70-110)
[2021-04-20] VITALS (16 sets, daily range): BP systolic 114–146; BP diastolic 60–80; PULSE 69–90; RESP 18–31; TEMP 36.6–37; O2SAT 84–95
[2021-04-20] MEDS: enoxaparin 40 mg/0.4 mL Syringe SUBCUT (01:19)
[2021-04-20] MEDS: ipratropium-albuterol 3 mL Neb INHALATION ×3 (03:38→20:42)
[2021-04-20 06:30] LABS: Glucose Point of Care 308 mg/dL (70-110)
[2021-04-20 07:07] LABS: NT Pro B Type Natriuretic Pept 275 pg/mL (0-125); Procalcitonin 0.09 ng/mL (0-0.5)
[2021-04-20 07:18] LABS: Ferritin 740 ng/mL (15-150); Magnesium 2.1 mg/dL (1.7-2.3); Phosphorus 2.6 mg/dL (2.5-4.5)
[2021-04-20 07:36] LABS: Anion Gap 17.1 (5-19); Blood Urea Nitrogen 40 mg/dL (8-23); Calcium 7.7 mg/dL (8.5-10.5); Carbon Dioxide 19 mmol/L (22-29); Chloride 98 mmol/L (98-107); Glucose 292 mg/dL (65-115); Osmolality Calculated 291 mOsm/kg (285-295); Potassium 4.1 mmol/L (3.5-5.1); Sodium 130 mmol/L (136-145)
[2021-04-20 07:39] LABS: Creatinine Clr Calc Pharmacy 54.2965
[2021-04-20] MEDS: pantoprazole 40 mg SDV IVP ×2 (08:21→22:05)
[2021-04-20] MEDS: fluoxetine 20 mg Capsule PO (08:21)
[2021-04-20] MEDS: levoFLOXacin 750 mg Tablet PO (08:21)
[2021-04-20] MEDS: levothyroxine 150 mcg Tablet PO (08:22)
[2021-04-20] MEDS: amlodipine 10 mg Tablet PO (08:22)
[2021-04-20] MEDS: aspirin 81 mg EC Tablet PO (08:22)
--- NOTE | 2021-04-20 11:22 | PC.SOCIAL ---
IMM Update pt. on iso for covid +. Call placed to rm and pt. updated on IMM. Pt. verbalized understanding.
[2021-04-20] MEDS: dextrose 5%-sod chloride 0.9% 1,000 ML 50 ML IV (12:03)
--- NOTE | 2021-04-20 14:59 | P.PN_ITS ---
Subjective Subjective: Interval history: Generally weak, productive cough. Denies other complaints. Vitals/I&O/Wt Last Vital Signs Temp 98.1 F 04/20/21 11:28 Pulse 84 04/20/21 14:41 Resp 24 H 04/20/21 14:41 BP 114/60 04/20/21 11:28 Pulse Ox 90 04/20/21 14:41 04/19/21 04/20/21 04/20/21 22:59 06:59 14:59 Intake Total 100 / 580 400 / 980 767.5 / 767.5 Output Total 0 / 0 725 / 725 400 / 400 Balance 100 / 580 -325 / 255 367.5 / 367.5 Physical Exam Const: COMMON NORMALS: no acute distress and patient oriented x3 NUTRITIONAL APPEARANCE: obese OTHER: BiPAP in place. Generally weak. HENMT: COMMON NORMALS: oropharynx normal Neck/C-Spine: COMMON NORMALS: no JVD Resp: COMMON NORMALS: normal respiratory effort and clear to auscultation bilaterally AUSCULTATION: clear to auscultation bilaterally Cardio: COMMON NORMALS: no JVD, regular rhythm, S1 normal heart sound present, S2 normal heart sound present and No murmurs present (Cardio) RHYTHM: regular rhythm HEART SOUNDS: S1 normal heart sound present and S2 normal heart sound present GI: COMMON NORMALS: Normal to inspection, nondistended, normoactive bowel sounds present, Soft to palpation and non-tender PALPATION: Yes Soft to palpation Extremity: COMMON NORMALS: no joint enlargement and no pedal edema Neuro: COMMON NORMALS: patient oriented x3 and moves all extremities Skin: COMMON NORMALS: no rashes or lesions noted GENERAL SKIN EXAM: no rashes or lesions noted Urinary Catheter Management^: Jean: Cath Placed During This Visit: yes Reason for Continuing Indwelling Catheter: Accurate Measurement of Urinary Output in Critically Ill Patients Urinary Catheter Date of Insertion: 04/17/21 Urinary Catheter Time of Insertion: 14:36 Data : 04/19/21 05:25 04/20/21 06:13 A&P Assessment and plan (1) COVID-19: Fifth dose remdesivir today. Continue Decadron. Continues hypoxic, requirement for BiPAP support. FiO2 requirement overall a little bit better. Inflammatory marker with improvement. Reassess CRP, D- dimer. duoneb q6h, budesonide q12h empiric levaquin Flutter valve/spirometer at bedside RECEIVED ACTEMRA on 04/17 Status: Acute (2) Hypoxia: As a result of COVID 19 pneumonia Status: Acute (3) Hyponatremia: Up to 130. DC IVF Hold chlorthalidone Status: Acute Additional A&P Information DVT ppx: lovenox PUD ppx: protonix Full code Attestations Medical Necessity Statement*: Continue admission for assessment of management of hypoxic respiratory failure secondary to severe COVID-19. Coding Level of Care Code Acute Wood Carver for [facility] Fwd Diagnoses COVID-19 U07.1 Hypoxia R09.02 Hyponatremia E87.1
--- NOTE | 2021-04-20 16:51 | PC.NURSE ---
Pt arrived to [facility] 2A floor at approximately 1615. Pt A&O x4. Pt is on bipap at 85 Lpm. Pt has no c/o pain or discomfort at the present time. No needs voiced. Call light in reach.
[2021-04-20] MEDS: dexamethasone 4 mg/mL INJ 6 MG IVP (18:12)
[2021-04-20] MEDS: remdesivir 100 MG in sodium chloride 0.9% (100 ml) 100 ML IV (18:13)
[2021-04-20] MEDS: budesonide 0.5 mg/2 mL Neb INHALATION (20:42)
[2021-04-21] VITALS (54 sets, daily range): BP systolic 121–158; BP diastolic 57–81; PULSE 50–98; RESP 18–26; TEMP 36.6–37.1; O2SAT 73–96
[2021-04-21] MEDS: enoxaparin 40 mg/0.4 mL Syringe SUBCUT (02:32)
[2021-04-21] MEDS: ipratropium-albuterol 3 mL Neb INHALATION ×4 (03:45→20:20)
--- NOTE | 2021-04-21 06:00 | XR_ITS ---
WS: [id number] Portable AP supine chest, 04/21/2021 Clinical Data: Hypoxia Comparison: Portable chest, 04/16/2021. Findings: Bilateral pulmonary opacities have occurred since the last chest x-ray. The heart is enlarg ed. The aortic arch and descending aorta show calcification and tortuosity. The patient's clothing ob scures minimal detail in the lower chest. XR/XR chest 1V portable [id number] Impression: 1. Bilateral pulmonary opacities consistent with acute pneumonia. 2. Cardiomegaly and atherosclerosis.
[2021-04-21 08:00] LABS: Glucose Point of Care 180 mg/dL (70-110)
[2021-04-21 08:00] LABS: Glucose Point of Care 273 mg/dL (70-110)
[2021-04-21 08:00] LABS: Glucose Point of Care 225 mg/dL (70-110)
[2021-04-21 08:00] LABS: Glucose Point of Care 277 mg/dL (70-110)
[2021-04-21 08:20] LABS: Basophils % 0.3 %; Hematocrit 42.1 % (37.0-47.0); Hemoglobin 13.9 g/dL (11.5-15.3); Lymphocytes # 0.4 10^3/uL (0.8-4.8); Lymphocytes % 4.2 %; Mean Corpuscular Hemoglobin 28.2 pg (28.0-34.0); Mean Corpuscular Volume 85.4 fL (81-99); Mean Platelet Volume 11.6 fL (7.4-10.4); Monocytes # 0.7 10^3/uL (0.2-0.9); Monocytes % 6.7 %; Neutrophils # 8.52 10^3/uL (1.8-7.7); Neutrophils % 85.7 %; Nucleated Red Blood Cells % 0 %; Platelet Count 230 10^3/cmm (130-400); Red Blood Count 4.93 10^6/uL (4.1-5.3); Red Cell Distribution Width 13.7 % (12.1-15.1)
[2021-04-21 08:26] LABS: D Dimer 3.23 ug/mIFEU (0-0.59)
[2021-04-21] MEDS: budesonide 0.5 mg/2 mL Neb INHALATION ×2 (08:33→20:20)
[2021-04-21 08:44] LABS: Blood Urea Nitrogen 45 mg/dL (8-23); Calcium 7.8 mg/dL (8.5-10.5); Carbon Dioxide 19 mmol/L (22-29); Chloride 102 mmol/L (98-107); Glucose 256 mg/dL (65-115); Osmolality Calculated 296 mOsm/kg (285-295); Sodium 133 mmol/L (136-145)
[2021-04-21 08:45] LABS: Anion Gap 16.4 (5-19); Potassium 4.4 mmol/L (3.5-5.1)
[2021-04-21 08:46] LABS: C Reactive Protein 19.3 mg/L (0.0-4.9)
[2021-04-21 08:57] LABS: Slide Review Slide Review Perform
[2021-04-21] MEDS: aspirin 81 mg EC Tablet PO (09:07)
[2021-04-21] MEDS: pantoprazole 40 mg SDV IVP ×2 (09:07→20:36)
[2021-04-21] MEDS: levothyroxine 150 mcg Tablet PO (09:07)
[2021-04-21] MEDS: amlodipine 10 mg Tablet PO (09:07)
[2021-04-21] MEDS: levoFLOXacin 750 mg Tablet PO (09:07)
--- NOTE | 2021-04-21 09:47 | PC.CHAP ---
Pastoral Care Encounter/Spiritual Assessment Type of Contact [] Declined hand slitter visit [] Patient/Family/Request visit [] Outpatient visit [] Follow-up visit [] Physician referral [] Code/Alert [x] Routine visit [] Staff referral [] Actively dying [] Patient sleeping [] Family support [] [] Out of room [] Palliative care [] [] Receiving care in room [] Pre-surgical visit [] Trauma [] Long length of stay [] ICU visit [x] Other: covid Relational/Emotional Strength [] Patient feels connected with others/family/visitors/staff [] Distress [] Loneliness/isolation [] Abandonment Spirituality of Patient [] Person of Corina [] Attends Denominational of their Cor[place] [] Believes in Prayer [] Reads Bible or Rastafarian materials [] There are Spiritual issues to be addressed Middle School Pe Teacher Interventions [x] Prayer [] Active listening [] Non-anxious presence [] Spiritual/emotional support [] Crisis/trauma care [] Spiritual counseling [] Bereavement support [] Provided bereavement packet [] Provided Bible/devotional materials [] Provided toy/stuffed animal, coloring book to patient or family member [] Provided Communion [] Anointing/[place] [] Salvation [x] Completed spiritual assessment [] Other: Impact on Illness or Injury [] Angry [] Fearful [] Anxious [] Often cries [] Exhaustion [] Unable to work [] Unable to attend christianity [] Unable to walk/stand [] Unable to read [] Unable to drive [] Unable to eat/drink [] Unable to sleep [] Unable to be with family [] Patient intubated [] Other: Summary Time spent with patient
[2021-04-21] MEDS: fluoxetine 20 mg Capsule PO (10:24)
[2021-04-21 13:47] LABS: Glucose Point of Care 255 mg/dL (70-110)
--- NOTE | 2021-04-21 14:29 | P.PN_ITS ---
Vitals/I&O/Wt Last Vital Signs Temp 98.1 F 04/21/21 12:00 Pulse 85 04/21/21 13:10 Resp 18 04/21/21 13:10 BP 121/68 04/21/21 12:00 Pulse Ox 92 04/21/21 13:10 04/20/21 04/21/21 04/21/21 22:59 06:59 14:59 Intake Total 660 / 1427.5 240 / 240 Output Total 975 / 1375 200 / 1575 Balance -315 / 52.5 -200 / -147.5 240 / 240 Physical Exam Const: COMMON NORMALS: no acute distress and patient oriented x3 NUTRITIONAL APPEARANCE: obese OTHER: BiPAP in place. Generally weak. HENMT: COMMON NORMALS: oropharynx normal Neck/C-Spine: COMMON NORMALS: no JVD Resp: COMMON NORMALS: normal respiratory effort and clear to auscultation mila aterally AUSCULTATION: clear to auscultation bilaterally Cardio: COMMON NORMALS: no JVD, regular rhythm, S1 normal heart sound present, S2 normal heart sound present and No murmurs present (Cardio) RHYTHM: regular rhythm HEART SOUNDS: S1 normal heart sound present and S2 normal heart sound present GI: COMMON NORMALS: Normal to inspection, nondistended, normoactive bowel sounds present, Soft to palpation and non-tender PALPATION: Yes Soft to palpation Extremity: COMMON NORMALS: no joint enlargement and no pedal edema Neuro: COMMON NORMALS: patient oriented x3 and moves all extremities Skin: COMMON NORMALS: no rashes or lesions noted GENERAL SKIN EXAM: no rashes or lesions noted Urinary Catheter Management^: Jean: Cath Placed During This Visit: yes Reason for Continuing Indwelling Catheter: Hospice/Comfort/Palliative Care Urinary Catheter Date of Insertion: 04/17/21 Urinary Catheter Time of Insertion: 14:36 Data : 04/21/21 07:15 04/21/21 07:15 A&P Assessment and plan (1) COVID-19: FiO2 requirement increased from last night and today. Appears to have plateaued around 90% and was able to switch to high flow cannula this afternoon. Overall remains in serious condition with severe COVID-19. Discussed with her and her daughter. Despite inflammatory markers decreasing, oxygenation has not significantly improved. Concern regarding fibrotic reaction of the lungs. Does not appear to have superimposed bacterial infection at the moment. Chest x-ray repeated with bilateral opacities. Discussed some increase in D-dimer. Continue to monitor. Continue prophylactic Lovenox. In case of worsening hypoxia, discussed consideration of next steps. She is not entirely sure that she would want to be intubated, but is leaving full code for now. States she would not want to have mechanical ventilation for prolonged period of time. She would like to think further and let us know in case she decides she would not want to pursue intubation entirely. Discussed risks benefits, alternatives of intubation, mechanical ventilation, sedation, possible paralysis. She understands that without intubation and mechanical donation in case of inability to maintain oxygen with high flow cannula or BiPAP mortality may be imminent in case of progressive worsening of lung function. Discussed also option of supportive care, comfort care. Discussed continuation of Decadron. For now continue remdesivir today his last dose of the 5-day therapy. Discussed consideration of extension of therapy, although given degree of hypoxia may not be beneficial. Mild cardiomegaly noted on chest x-ray. Monitor for any signs of fluid overload. Continue I&O. We will add daily weights. duoneb q6h, budesonide q12h empiric levaquin Flutter valve/spirometer at bedside S/p ACTEMRA on 04/17 Status: Acute (2) Hypoxia: As a result of COVID 19 pneumonia Status: Acute (3) Hyponatremia: Improving. Up to 130. DC IVF Hold chlorthalidone Status: Acute Additional A&P Information DVT ppx: lovenox PUD ppx: protonix Full code Attestations Medical Necessity Statement*: Continue admission for hypoxic respiratory failure with severe COVID-19. 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
[2021-04-21] MEDS: remdesivir 100 MG in sodium chloride 0.9% (100 ml) 100 ML IV (17:10)
[2021-04-21] MEDS: dexamethasone 4 mg/mL INJ 6 MG IVP (17:11)
[2021-04-21 17:30] LABS: Glucose Point of Care 206 mg/dL (70-110)
--- NOTE | 2021-04-21 20:29 | PC.NURSE ---
Addendum entered by Josefa Brandon 04/21/21 20:30: Left message for dietary to review note as they are out for the night. Original Note: Pt states she cannot tolerate milk or splenda.
[2021-04-22] VITALS (32 sets, daily range): BP systolic 130–167; BP diastolic 61–88; PULSE 77–108; RESP 18–28; TEMP 36.2–37.3; O2SAT 88–96; BMI 48.0
[2021-04-22] MEDS: enoxaparin 40 mg/0.4 mL Syringe SUBCUT (01:17)
[2021-04-22] MEDS: ipratropium-albuterol 3 mL Neb INHALATION ×4 (03:08→20:20)
[2021-04-22 07:13] LABS: Glucose Point of Care 346 mg/dL (70-110)
[2021-04-22 07:38] LABS: Basophils # 0.1 10^3/uL (0.0-0.1); Basophils % 0.4 %; Hematocrit 42.8 % (37.0-47.0); Lymphocytes # 0.6 10^3/uL (0.8-4.8); Lymphocytes % 4.2 %; Mean Corpuscular HGB Conc 32.7 g/dL (30.0-36.0); Mean Corpuscular Hemoglobin 28.6 pg (28.0-34.0); Mean Corpuscular Volume 87.3 fL (81-99); Mean Platelet Volume 11.1 fL (7.4-10.4); Monocytes # 1.1 10^3/uL (0.2-0.9); Monocytes % 7.8 %; Neutrophils # 11.83 10^3/uL (1.8-7.7); Neutrophils % 82.8 %; Nucleated Red Blood Cells % 0 %; Platelet Count 227 10^3/cmm (130-400); Red Cell Distribution Width 14.2 % (12.1-15.1); White Blood Count 14.3 10^3/uL (4.0-10.0)
[2021-04-22 08:09] LABS: Alanine Aminotransferase 19 U/L (0-33); Albumin Level 3.1 g/dL (3.5-5.2); Alkaline Phosphatase 71 IU/L (35-105); Anion Gap 16.9 (5-19); Aspartate Amino Transferase 20 U/L (0-32); Blood Urea Nitrogen 45 mg/dL (8-23); C Reactive Protein 12.7 mg/L (0.0-4.9); Calcium 8.1 mg/dL (8.5-10.5); Carbon Dioxide 19 mmol/L (22-29); Chloride 102 mmol/L (98-107); Globulin 2.6 g/dL (1.3-4.6); Glucose 324 mg/dL (65-115); Osmolality Calculated 302 mOsm/kg (285-295); Potassium 3.9 mmol/L (3.5-5.1); Sodium 134 mmol/L (136-145); Total Bilirubin 0.5 mg/dL (0.15-1.2); Total Protein 5.7 g/dL (6.6-8.7)
[2021-04-22] MEDS: aspirin 81 mg EC Tablet PO (08:24)
[2021-04-22] MEDS: pantoprazole 40 mg SDV IVP ×2 (08:24→20:33)
[2021-04-22] MEDS: fluoxetine 20 mg Capsule PO (08:24)
[2021-04-22] MEDS: amlodipine 10 mg Tablet PO (08:25)
[2021-04-22] MEDS: levothyroxine 150 mcg Tablet PO (08:25)
[2021-04-22] MEDS: budesonide 0.5 mg/2 mL Neb INHALATION ×2 (08:25→20:20)
[2021-04-22] MEDS: levoFLOXacin 750 mg Tablet PO (08:25)
[2021-04-22 08:42] LABS: D Dimer 7.78 ug/mIFEU (0-0.59)
--- NOTE | 2021-04-22 09:38 | PC.NURSE ---
0700 Report received, assessment completed at bedside. Pt on bipap switched to HFNC per RT. AAOx4. Makes all needs known. No issues noted. [id number] Report given to oncoming nurse.
--- NOTE | 2021-04-22 09:57 | PC.CHAP ---
Pastoral Care Encounter/Spiritual Assessment Type of Contact [] Declined business division chair visit [] Patient/Family/Request visit [] Outpatient visit [] Follow-up visit [] Physician referral [] Code/Alert [x] Routine visit [] Staff referral [] Actively dying [] Patient sleeping [] Family support [] [] Out of room [] Palliative care [] [] Receiving care in room [] Pre-surgical visit [] Trauma [] Long length of stay [] ICU visit [x] Other:covid Relational/Emotional Strength [] Patient feels connected with others/family/visitors/staff [] Distress [] Loneliness/isolation [] Abandonment Spirituality of Patient [] Person of Corina [] Attends Methodist of their Cor[place] [] Believes in Prayer [] Reads Bible or Religion materials [] There are Spiritual issues to be addressed Distribution Accounting Clerk Interventions [x] Prayer [] Active listening [] Non-anxious presence [] Spiritual/emotional support [] Crisis/trauma care [] Spiritual counseling [] Bereavement support [] Provided bereavement packet [] Provided Bible/devotional materials [] Provided toy/stuffed animal, coloring book to patient or family member [] Provided Communion [] Anointing/[place] [] Salvation [x] Completed spiritual assessment [] Other: Impact on Illness or Injury [] Angry [] Fearful [] Anxious [] Often cries [] Exhaustion [] Unable to work [] Unable to attend hoahaoism [] Unable to walk/stand [] Unable to read [] Unable to drive [] Unable to eat/drink [] Unable to sleep [] Unable to be with family [] Patient intubated [] Other: Summary Time spent with patient
[2021-04-22 12:08] LABS: Glucose Point of Care 231 mg/dL (70-110)
--- NOTE | 2021-04-22 14:21 | PM.PN ---
Subjective Subjective: Interval history: She is not sure entirely how she is doing, but denies any specific problems apart from not having had a bowel movement since she had come to the hospital. Feels somewhat bloated. Reports some urinary urgency. Vitals/I&O/Wt Last Vital Signs Temp 98.3 F 04/22/21 12:27 Pulse 89 04/22/21 12:27 Resp 20 H 04/22/21 12:27 BP 145/67 04/22/21 12:27 Pulse Ox 92 04/22/21 12:27 04/21/21 04/22/21 04/22/21 22:59 06:59 14:59 Intake Total 460 / 700 Output Total 0 / 0 Balance 460 / 700 Weight last 48 hrs Weight 127.006 kg Physical Exam Const: COMMON NORMALS: no acute distress and patient oriented x3 NUTRITIONAL APPEARANCE: obese OTHER: BiPAP in place. Generally weak. HENMT: COMMON NORMALS: oropharynx normal Neck/C-Spine: COMMON NORMALS: no JVD Resp: COMMON NORMALS: normal respiratory effort and clear to auscultation bilaterally AUSCULTATION: clear to auscultation bilaterally Cardio: COMMON NORMALS: no JVD, regular rhythm, S1 normal heart sound present, S2 normal heart sound present and No murmurs present (Cardio) RHYTHM: regular rhythm HEART SOUNDS: S1 normal heart sound present and S2 normal heart sound present GI: COMMON NORMALS: Normal to inspection, nondistended, normoactive bowel sounds present, Soft to palpation and non-tender PALPATION: Yes Soft to palpation Extremity: COMMON NORMALS: no joint enlargement and no pedal edema Neuro: COMMON NORMALS: patient oriented x3 and moves all extremities Skin: COMMON NORMALS: no rashes or lesions noted GENERAL SKIN EXAM: no rashes or lesions noted Urinary Catheter Management^: Jean: Cath Placed During This Visit: yes Reason for Continuing Indwelling Catheter: Accurate Measurement of Urinary Output in Critically Ill Patients Urinary Catheter Date of Insertion: 04/17/21 Urinary Catheter Time of Insertion: 14:36 Data : 04/22/21 07:20 04/22/21 07:20 A&P Assessment and plan (1) COVID-19: Fluctuating FiO2 requirement. Last night requiring up to 90% FiO2. Today down a little bit to 90%. Discussed with her rising D-dimer, up to 7.78. Discussed with her consideration of escalation to full dose anticoagulation. Discussed risk of bleeding. Discussed this will be done on empiric basis given she had not had PE on prior study, but may be at elevated risk, especially with rising parameter. She is agreeable to proceed. Discussed also with her son. She is thinking about her goals of care and will let us know whether is certain would want to proceed to intubation in case of continued deterioration. Discussed continuation of Decadron. Extend remdesivir additional 5d. Discussed consideration of extension of therapy, although given degree of hypoxia may not be beneficial. Mild cardiomegaly noted on chest x-ray. Monitor for any signs of fluid overload. Continue I&O. We will add daily weights. duoneb q6h, budesonide q12h empiric levaquin Flutter valve/spirometer at bedside S/p ACTEMRA on 04/17 Status: Acute (2) Hypoxia: As a result of COVID 19 pneumonia Status: Acute (3) Hyponatremia: Improving. Up to 134. DC IVF Hold chlorthalidone Status: Acute Additional A&P Information DVT ppx: lovenox PUD ppx: protonix Full code Attestations Medical Necessity Statement*: Continue admission for hypoxic respite failure secondary to severe COVID-19. Coding Level of Care Code Acute Behavioral Health Case Manager for [facility] Fwd Diagnoses COVID-19 U07.1 Hypoxia R09.02 Hyponatremia E87.1
--- NOTE | 2021-04-22 14:27 | PC.SOCIAL ---
IM follow up explained to patient and copy provided no questions voiced.
[2021-04-22] MEDS: enoxaparin 120 mg/0.8 mL Syringe SUBCUT (15:25)
[2021-04-22] MEDS: bisacodyl 10 mg Supp PR (15:25)
[2021-04-22 16:32] LABS: Bilirubin Urine Neg (Negative); Blood Urine 2+ (Negative); Glucose Urine UA 4+ (Normal); Ketones Urine Negative (Negative); Nitrate Urine Negative (Negative); Protein Urine Neg (Negative); Urine Appearance Hazy (CLEAR); Urine Color Yellow (Yellow); Urobilinogen Urine Norm (Negative); pH Urine 5 (5-7)
[2021-04-22 16:33] LABS: Add Urine Microscopic? YES; Leukocyte Esterase Urine Trace (Negative)
[2021-04-22 16:51] LABS: Bacteria Urine TRACE /hpf; WBC Urine 0-4 /hpf (0-5)
[2021-04-22 16:52] LABS: Add Urine Culture? Yes
[2021-04-22 17:24] LABS: Glucose Point of Care 205 mg/dL (70-110)
[2021-04-22] MEDS: remdesivir 100 MG in sodium chloride 0.9% (100 ml) 100 ML IV (17:44)
[2021-04-22] MEDS: polyethylene glycol 3350 Pkt 17 gm PO (17:44)
[2021-04-22] MEDS: dexamethasone 4 mg/mL INJ 6 MG IVP (17:45)
[2021-04-23] VITALS (19 sets, daily range): BP systolic 155–179; BP diastolic 71–91; PULSE 74–98; RESP 13–55; TEMP 36.3–36.8; O2SAT 90–95
[2021-04-23] MEDS: enoxaparin 120 mg/0.8 mL Syringe SUBCUT ×2 (02:35→14:28)
[2021-04-23] MEDS: ipratropium-albuterol 3 mL Neb INHALATION ×4 (03:22→20:48)
[2021-04-23 07:26] LABS: Hematocrit 46.8 % (37.0-47.0); Hemoglobin 14.7 g/dL (11.5-15.3); Mean Corpuscular HGB Conc 31.4 g/dL (30.0-36.0); Mean Corpuscular Hemoglobin 28.6 pg (28.0-34.0); Mean Corpuscular Volume 91.1 fL (81-99); Platelet Count 235 10^3/cmm (130-400); Red Blood Count 5.14 10^6/uL (4.1-5.3); Red Cell Distribution Width 14.6 % (12.1-15.1); White Blood Count 17.1 10^3/uL (4.0-10.0)
[2021-04-23 07:56] LABS: Alanine Aminotransferase 19 U/L (0-33); Albumin Level 3.2 g/dL (3.5-5.2); Alkaline Phosphatase 80 IU/L (35-105); Aspartate Amino Transferase 21 U/L (0-32); Blood Urea Nitrogen 42 mg/dL (8-23); Calcium 8.2 mg/dL (8.5-10.5); Carbon Dioxide 19 mmol/L (22-29); Chloride 104 mmol/L (98-107); Globulin 2.7 g/dL (1.3-4.6); Glucose 282 mg/dL (65-115); Osmolality Calculated 307 mOsm/kg (285-295); Sodium 138 mmol/L (136-145); Total Bilirubin 0.7 mg/dL (0.15-1.2); Total Protein 5.9 g/dL (6.6-8.7)
[2021-04-23 08:00] LABS: Anion Gap 19.5 (5-19); Potassium 4.5 mmol/L (3.5-5.1)
[2021-04-23 08:17] LABS: Slide Review Slide Review Perform
[2021-04-23 08:20] LABS: Band Neutrophils Absolute 0.7 10^3/cmm (0.0-1.2); Lymphocytes 1 %; Lymphocytes Absolute 0.3 10^3/cmm (1.2-3.4); Monocytes Absolute 0.3 10^3/cmm (0.1-0.6); Segmented Neutrophils 88 %; Total Cells Counted 100 (0-100)
[2021-04-23 08:21] LABS: Absolute Neutrophil 15.7 10^3/cmm (1.4-6.5); Eosinophils 0 %; Platelet Estimate Normal (Normal)
[2021-04-23] MEDS: budesonide 0.5 mg/2 mL Neb INHALATION ×2 (09:12→20:48)
[2021-04-23] MEDS: pantoprazole 40 mg SDV IVP (09:43)
[2021-04-23] MEDS: levothyroxine 150 mcg Tablet PO (09:43)
[2021-04-23] MEDS: aspirin 81 mg EC Tablet PO (09:43)
[2021-04-23] MEDS: polyethylene glycol 3350 Pkt 17 gm PO (09:43)
[2021-04-23] MEDS: amlodipine 10 mg Tablet PO (09:43)
[2021-04-23] MEDS: fluconazole 100 mg Tablet 200 MG PO (09:43)
[2021-04-23] MEDS: levoFLOXacin 750 mg Tablet PO (09:43)
[2021-04-23] MEDS: fluoxetine 20 mg Capsule PO (09:43)
--- NOTE | 2021-04-23 09:53 | PC.CHAP ---
Pastoral Care Encounter/Spiritual Assessment Type of Contact [] Declined rf manager visit [] Patient/Family/Request visit [] Outpatient visit [] Follow-up visit [] Physician referral [] Code/Alert [x] Routine visit [] Staff referral [] Actively dying [] Patient sleeping [] Family support [] [] Out of room [] Palliative care [] [] Receiving care in room [] Pre-surgical visit [] Trauma [] Long length of stay [] ICU visit [x] Other: covid Relational/Emotional Strength [] Patient feels connected with others/family/visitors/staff [] Distress [] Loneliness/isolation [] Abandonment Spirituality of Patient [] Person of Corina [] Attends Yazdanism of their Corina [] Believes in Prayer [] Reads Bible or Orthodox materials [] There are Spiritual issues to be addressed Annual Giving Manager Interventions [x] Prayer [] Active listening [] Non-anxious presence [] Spiritual/emotional support [] Crisis/trauma care [] Spiritual counseling [] Bereavement support [] Provided bereavement packet [] Provided Bible/devotional materials [] Provided toy/stuffed animal, coloring book to patient or family member [] Provided Communion [] Anointing/[place] [] Salvation [x Impact on Illness or Injury [] Angry [] Fearful [] Anxious [] Often cries [] Exhaustion [] Unable to work [] Unable to attend orthodoxy [] Unable to walk/stand [] Unable to read [] Unable to drive [] Unable to eat/drink [] Unable to sleep [] Unable to be with family [] Patient intubated [] Other: Summary Time spent with patient
[2021-04-23 11:00] LABS: Glucose Point of Care 250 mg/dL (70-110)
--- NOTE | 2021-04-23 14:49 | P.PN_ITS ---
Subjective Subjective: Interval history: She states she is doing all right overall. She is having some cough. Denies chest pain. Discussed with her finding of yeast in urinalysis. Discussed starting Diflucan. Vitals/I&O/Wt Last Vital Signs Temp 97.6 F 04/23/21 12:00 Pulse 92 04/23/21 12:00 Resp 22 H 04/23/21 12:00 BP 155/76 04/23/21 12:00 Pulse Ox 91 04/23/21 12:00 04/22/21 04/23/21 04/23/21 22:59 06:59 14:59 Intake Total 340 / 340 0 / 340 Output Total 500 / 500 Balance 340 / 340 -500 / -160 Weight last 48 hrs Weight 135.987 kg Weight 127.006 kg Physical Exam Const: COMMON NORMALS: no acute distress and patient oriented x3 GENERAL APPEARANCE: frail appearing NUTRITIONAL APPEARANCE: obese OTHER: HHFC in place. HENMT: COMMON NORMALS: oropharynx normal Neck/C-Spine: COMMON NORMALS: no JVD Resp: COMMON NORMALS: normal respiratory effort and clear to auscultation bilaterally AUSCULTATION: clear to auscultation bilaterally Cardio: COMMON NORMALS: no JVD, regular rhythm, S1 normal heart sound present, S2 normal heart sound present and No murmurs present (Cardio) RHYTHM: regular rhythm HEART SOUNDS: S1 normal heart sound present and S2 normal heart sound present GI: COMMON NORMALS: Normal to inspection, nondistended, normoactive bowel sounds present, Soft to palpation and non-tender PALPATION: Yes Soft to pal pation Extremity: COMMON NORMALS: no joint enlargement and no pedal edema Neuro: COMMON NORMALS: patient oriented x3 and moves all extremities Skin: COMMON NORMALS: no rashes or lesions noted GENERAL SKIN EXAM: no rashes or lesions noted Urinary Catheter Management^: Jean: Cath Placed During This Visit: yes Reason for Continuing Indwelling Catheter: Accurate Measurement of Urinary Output in Critically Ill Patients Urinary Catheter Date of Insertion: 04/17/21 Urinary Catheter Time of Insertion: 14:36 Data : 04/23/21 07:09 04/23/21 06:26 A&P Assessment and plan (1) COVID-19: FiO2 requirement overall fluctuating, currently down slightly to 90%. Continue extended course of remdesivir. Continue Decadron. Continue empiric anticoagulation at this time. Recheck D-dimer. Discussed continuation of Decadron. Mild cardiomegaly noted on chest x-ray. Monitor for any signs of fluid overload. Continue I&O. Daily weights. duoneb q6h, budesonide q12h empiric levaquin. Rising leukocytosis. Collect sputum culture. MRSA PCR. Flutter valve/spirometer at bedside S/p ACTEMRA on 04/17 Status: Acute (2) Hypoxia: As a result of COVID 19 pneumonia Status: Acute (3) Hyponatremia: Resolved. Hold chlorthalidone Status: Acute Additional A&P Information DVT ppx: lovenox PUD ppx: protonix Full code Attestations Medical Necessity Statement*: Continue admission for assessment of management of hypoxic respiratory failure with severe COVID-19. Coding Level of Care Code Acute Skin Piler for [facility] Diagnoses COVID-19 U07.1 Hypoxia R09.02 Hyponatremia E87.1
[2021-04-23] MEDS: remdesivir 100 MG in sodium chloride 0.9% (100 ml) 100 ML IV (18:03)
[2021-04-23] MEDS: dexamethasone 4 mg/mL INJ 6 MG IVP (18:03)
[2021-04-23] MEDS: pantoprazole DR 40 mg Tablet PO (23:37)
[2021-04-24] VITALS (13 sets, daily range): BP systolic 134–176; BP diastolic 63–84; PULSE 88–107; RESP 17–24; TEMP 36.1–36.5; O2SAT 89–94
[2021-04-24] MEDS: ipratropium-albuterol 3 mL Neb INHALATION ×4 (02:26→21:03)
[2021-04-24] MEDS: enoxaparin 120 mg/0.8 mL Syringe SUBCUT ×2 (04:15→18:44)
[2021-04-24 06:29] LABS: Basophils # 0.1 10^3/uL (0.0-0.1); Basophils % 0.8 %; Hematocrit 45.2 % (37.0-47.0); Hemoglobin 14.4 g/dL (11.5-15.3); Lymphocytes # 0.4 10^3/uL (0.8-4.8); Lymphocytes % 2.4 %; Mean Corpuscular HGB Conc 31.9 g/dL (30.0-36.0); Mean Corpuscular Hemoglobin 28.5 pg (28.0-34.0); Mean Corpuscular Volume 89.5 fL (81-99); Mean Platelet Volume 11.6 fL (7.4-10.4); Monocytes # 0.6 10^3/uL (0.2-0.9); Monocytes % 3.7 %; Neutrophils # 15.01 10^3/uL (1.8-7.7); Neutrophils % 85.8 %; Nucleated Red Blood Cells % 0 %; Platelet Count 240 10^3/cmm (130-400); Positive C 1; Positive M 1; Red Blood Count 5.05 10^6/uL (4.1-5.3); Red Cell Distribution Width 14.7 % (12.1-15.1); White Blood Count 17.5 10^3/uL (4.0-10.0)
[2021-04-24 07:03] LABS: D Dimer 6.95 ug/mIFEU (0-0.59)
[2021-04-24 07:46] LABS: Albumin Level 3.2 g/dL (3.5-5.2); Alkaline Phosphatase 83 IU/L (35-105); Blood Urea Nitrogen 43 mg/dL (8-23); C Reactive Protein 6.4 mg/L (0.0-4.9); Calcium 8.1 mg/dL (8.5-10.5); Carbon Dioxide 18 mmol/L (22-29); Chloride 106 mmol/L (98-107); Globulin 2.6 g/dL (1.3-4.6); Glucose 291 mg/dL (65-115); Osmolality Calculated 310 mOsm/kg (285-295); Sodium 139 mmol/L (136-145); Total Bilirubin 0.7 mg/dL (0.15-1.2); Total Protein 5.8 g/dL (6.6-8.7)
[2021-04-24 07:47] LABS: Alanine Aminotransferase 18 U/L (0-33); Anion Gap 19.6 (5-19); Aspartate Amino Transferase 26 U/L (0-32); Potassium 4.6 mmol/L (3.5-5.1)
[2021-04-24] MEDS: budesonide 0.5 mg/2 mL Neb INHALATION ×2 (09:50→21:05)
[2021-04-24] MEDS: fluoxetine 20 mg Capsule PO (10:12)
[2021-04-24] MEDS: levoFLOXacin 750 mg Tablet PO (10:12)
[2021-04-24] MEDS: pantoprazole DR 40 mg Tablet PO ×2 (10:12→22:44)
[2021-04-24] MEDS: fluconazole 100 mg Tablet 200 MG PO (10:12)
[2021-04-24] MEDS: levothyroxine 150 mcg Tablet PO (10:12)
[2021-04-24] MEDS: aspirin 81 mg EC Tablet PO (10:12)
[2021-04-24] MEDS: amlodipine 10 mg Tablet PO (10:13)
--- NOTE | 2021-04-24 10:55 | PC.SOCIAL ---
IMM Update Pg. 2 of IMM updated with patient's son over the phone. Unable to reach patient, and son is with patient's at this time. Verbalized understanding and denied any needs from CM at this time.
--- NOTE | 2021-04-24 14:51 | P.PN_ITS ---
Subjective Subjective: Interval history: She feels that she is doing slightly better today. She had gotten up to the commode today. Did well with that. Jean catheter has been leaking, somewhat bothersome to her. She would like it removed. Denies chest pain or pressure. Vitals/I&O/Wt Last Vital Signs Temp 97.7 F 04/24/21 04:00 Pulse 102 H 04/24/21 14:48 Resp 20 H 04/24/21 14:41 BP 163/69 04/24/21 08:00 Pulse Ox 89 L 04/24/21 14:41 04/23/21 04/24/21 04/24/21 22:59 06:59 14:59 Intake Total 220 / 220 Output Total 0 / 0 Balance 220 / 220 0 / 220 Weight last 48 hrs Weight 134.535 kg Weight 135.987 kg Physical Exam Const: COMMON NORMALS: no acute distress, patient oriented x3 and alert NUTRITIONAL APPEARANCE: obese morbidly obese ORIENTATION/CONSCIOUSNESS: Yes awake HENMT: COMMON NORMALS: oropharynx normal Neck/C-Spine: COMMON NORMALS: no JVD Resp: COMMON NORMALS: normal respiratory effort and clear to auscultation bilaterally AUSCULTATION: clear to auscultation bilaterally Cardio: COMMON NORMALS: no JVD, regular rhythm, S1 normal heart sound present, S2 normal heart sound present and No murmurs present (Cardio) RHYTHM: regular rhythm HEART SOUNDS: S1 normal heart sound present and S2 normal heart sound present GI: COMMON NORMALS: Normal to inspection, nondistended, normoactive bowel s ounds present, Soft to palpation and non-tender PALPATION: Yes Soft to palpation Extremity: COMMON NORMALS: no joint enlargement and no pedal edema Neuro: COMMON NORMALS: patient oriented x3 and moves all extremities SENSORIUM/ORIENTATION: Yes alert Skin: COMMON NORMALS: no rashes or lesions noted GENERAL SKIN EXAM: no rashes or lesions noted Urinary Catheter Management^: Jean: Cath Placed During This Visit: yes Reason for Continuing Indwelling Catheter: Other Urinary Catheter Date of Insertion: 04/17/21 Urinary Catheter Time of Insertion: 14:36 Data : 04/24/21 05:04 04/24/21 05:04 A&P Assessment and plan (1) COVID-19: Requiring BiPAP 2 L by high flow cannula. Did get up to commode today. Subjectively says is feeling a bit better. CRP continues to decrease. D-dimer somewhat lower than yesterday. She would like to have the Jean removed, we will since she appears to be able to get up, however, discussed with her may need to be replaced in case of worsening condition. Continue extended course of remdesivir. Continue Decadron. Continue empiric anticoagulation at this time. Recheck D-dimer. Will obtain duplex ultrasound. Mild cardiomegaly noted on chest x-ray. Monitor for any signs of fluid overload. Continue I&O. Daily weights. Has been on HCTZ. BUN somewhat rising. Diuretics held for now. duoneb q6h, budesonide q12h empiric levaquin. Rising leukocytosis. Collect sputum culture. MRSA PCR pending. Flutter valve/spirometer at bedside S/p ACTEMRA on 04/17 Status: Acute (2) Hypoxia: As a result of COVID 19 pneumonia Status: Acute (3) Hyponatremia: Resolved. Hold chlorthalidone Status: Acute Attestations Medical Necessity Statement*: Continue admission for assessment management of hypoxic respiratory failure due to severe COVID-19. Coding Level of Care Code Acute Parimutuel Ticket Seller for [facility] Fwd Exam Comprehensive Diagnoses COVID-19 U07.1 Hypoxia R09.02 Hyponatremia E87.1
--- NOTE | 2021-04-24 14:58 | USR_ITS ---
PROCEDURE INFORMATION: Exam: US Duplex Lower Extremity Veins, Bilateral Exam date and time: 04/24/2021 2:58 PM Age: 75 years old Clinical indication: Swelling (edema) of limb; Lower extremity, bilateral; Additional info: Elev ddimer, hypoxia, assess for dvt TECHNIQUE: Imaging protocol: Real-time duplex ultrasound of the extremities with 2-D rockwell scale, color Doppler flow and spectral waveform analysis with image documentation. Complete exam focused on the bilateral lower extremity veins. Total images: 57 COMPARISON: US renal BI* [id number] 10/03/2020 4:01 PM FINDINGS: Right deep veins: Unremarkable. The common femoral, femoral, proximal profunda femoral and popliteal veins are patent without thrombus. Normal Doppler waveforms. Normal compressibility and/or augmentation response. Right superficial veins: Saphenofemoral junction is patent without thrombus. Left deep veins: Unremarkable. The common femoral, femoral, proximal profunda femoral and popliteal veins are patent without thrombus. Normal Doppler waveforms. Normal compressibility and/or augmentation response. Left superficial veins: Saphenofemoral junction is patent without thrombus. Soft tissues: Unremarkable. Other findings: Examination was technically difficult due to patient's obesity. US/[place] [id number] IMPRESSION: No evidence of deep vein thrombosis.
--- NOTE | 2021-04-24 15:30 | PC.NUTR ---
Nutrition follow up: Average po intakes unclear at this time, as 6 meals missing from EMR. Will discontinue Glucerna supplement per pt preference, as she does not consume Splenda/sucralose. Will add no splenda/sucralose and no milk to diet information. Recommend to encourage po intakes of meals as well as Ensure Clear supplements to optimize nutrition. See full RD assessment for further details.
[2021-04-24] MEDS: remdesivir 100 MG in sodium chloride 0.9% (100 ml) 100 ML IV (18:44)
[2021-04-24] MEDS: dexamethasone 4 mg/mL INJ 6 MG IVP (18:44)
--- NOTE | 2021-04-24 20:00 | PC.NURSE ---
bp taken in pt left lower arm due to hematoma on back of left arm and iv in right wrist
[2021-04-24 21:17] LABS: Glucose Point of Care 242 mg/dL (70-110)
[2021-04-24 21:17] LABS: Glucose Point of Care 238 mg/dL (70-110)
[2021-04-24 21:17] LABS: Glucose Point of Care 262 mg/dL (70-110)
[2021-04-24 21:17] LABS: Glucose Point of Care 261 mg/dL (70-110)
[2021-04-24 21:17] LABS: Glucose Point of Care 287 mg/dL (70-110)
[2021-04-24 21:17] LABS: Glucose Point of Care 328 mg/dL (70-110)
[2021-04-24 22:54] LABS: Glucose Point of Care 283 mg/dL (70-110)
[2021-04-25] VITALS (15 sets, daily range): BP systolic 101–176; BP diastolic 59–100; PULSE 66–109; RESP 17–24; TEMP 36.6–37.1; O2SAT 87–91
--- NOTE | 2021-04-25 00:25 | PC.NURSE ---
pt asked about pain. pt stated pain was on her right side. pt previous shift stated she had pain on her left side.
[2021-04-25] MEDS: enoxaparin 120 mg/0.8 mL Syringe SUBCUT (02:42)
--- NOTE | 2021-04-25 06:34 | PC.NURSE ---
pt changed once during our shift. little urine noted.
[2021-04-25 06:54] LABS: Glucose Point of Care 269 mg/dL (70-110)
--- NOTE | 2021-04-25 07:00 | PC.NURSE ---
Late entry Report received from Maria T HOWELL. Patient is resting in bed. No C/O of pain or other needs at this time.
[2021-04-25 07:36] LABS: Basophils # 0.1 10^3/uL (0.0-0.1); Basophils % 0.5 %; Hematocrit 42.2 % (37.0-47.0); Hemoglobin 13.8 g/dL (11.5-15.3); Lymphocytes # 0.4 10^3/uL (0.8-4.8); Mean Corpuscular HGB Conc 32.7 g/dL (30.0-36.0); Mean Corpuscular Hemoglobin 28.3 pg (28.0-34.0); Mean Corpuscular Volume 86.7 fL (81-99); Mean Platelet Volume 11.7 fL (7.4-10.4); Monocytes # 0.6 10^3/uL (0.2-0.9); Monocytes % 3.4 %; Neutrophils # 16.15 10^3/uL (1.8-7.7); Nucleated Red Blood Cells % 0 %; Platelet Count 250 10^3/cmm (130-400); Red Blood Count 4.87 10^6/uL (4.1-5.3); Red Cell Distribution Width 14.6 % (12.1-15.1); White Blood Count 18.3 10^3/uL (4.0-10.0)
[2021-04-25 07:41] LABS: Neutrophils % 94.1 %
[2021-04-25 08:02] LABS: Alanine Aminotransferase 16 U/L (0-33); Albumin Level 3.3 g/dL (3.5-5.2); Alkaline Phosphatase 85 IU/L (35-105); Anion Gap 18.3 (5-19); Aspartate Amino Transferase 19 U/L (0-32); Blood Urea Nitrogen 51 mg/dL (8-23); Calcium 8.4 mg/dL (8.5-10.5); Carbon Dioxide 23 mmol/L (22-29); Chloride 110 mmol/L (98-107); Globulin 2.4 g/dL (1.3-4.6); Glucose 280 mg/dL (65-115); Osmolality Calculated 328 mOsm/kg (285-295); Potassium 4.3 mmol/L (3.5-5.1); Sodium 147 mmol/L (136-145); Total Bilirubin 0.7 mg/dL (0.15-1.2); Total Protein 5.7 g/dL (6.6-8.7)
[2021-04-25] MEDS: levoFLOXacin 750 mg Tablet PO (09:56)
[2021-04-25] MEDS: fluconazole 100 mg Tablet 200 MG PO (09:56)
[2021-04-25] MEDS: pantoprazole DR 40 mg Tablet PO ×2 (09:56→21:11)
[2021-04-25] MEDS: aspirin 81 mg EC Tablet PO (09:56)
[2021-04-25] MEDS: fluoxetine 20 mg Capsule PO (09:56)
[2021-04-25] MEDS: polyethylene glycol 3350 Pkt 17 gm PO ×2 (09:56→17:44)
[2021-04-25] MEDS: levothyroxine 150 mcg Tablet PO (09:56)
[2021-04-25] MEDS: amlodipine 10 mg Tablet PO (09:56)
--- NOTE | 2021-04-25 10:00 | PC.NURSE ---
Assisted patient to bedside commode. Patient tolerated well.
[2021-04-25] MEDS: insulin glargine 100 units/1 mL 10 UNIT SUBCUT (10:22)
[2021-04-25] MEDS: ipratropium-albuterol 3 mL Neb INHALATION ×3 (10:39→20:43)
[2021-04-25] MEDS: budesonide 0.5 mg/2 mL Neb INHALATION ×2 (10:39→20:44)
[2021-04-25 11:30] LABS: Glucose Point of Care 369 mg/dL (70-110)
--- NOTE | 2021-04-25 12:43 | PC.NURSE ---
Gave update to patient's daughter Leydi [phone].
--- NOTE | 2021-04-25 13:13 | P.PN_ITS ---
Subjective Subjective: Interval history: She feels a little bit better. She is having little bit of cough. Is not producing any phlegm. Has a collection jar on her table, so far not been able to provide a sample. Denies chest pain. No nausea vomiting or diarrhea. Vitals/I&O/Wt Last Vital Signs Temp 97.9 F 04/25/21 12:00 Pulse 88 04/25/21 12:09 Resp 24 H 04/25/21 12:09 BP 145/81 04/25/21 12:00 Pulse Ox 91 04/25/21 12:09 04/24/21 04/25/21 04/25/21 22:59 06:59 14:59 Intake Total 200 / 200 Output Total 450 / 450 Balance -450 / -450 200 / 200 Weight last 48 hrs Weight 133.764 kg Weight 134.535 kg Physical Exam Const: COMMON NORMALS: no acute distress, patient oriented x3 and alert NUTRITIONAL APPEARANCE: obese morbidly obese ORIENTATION/CONSCIOUSNESS: Yes awake HENMT: COMMON NORMALS: oropharynx normal Neck/C-Spine: COMMON NORMALS: no JVD Resp: COMMON NORMALS: normal respiratory effort and clear to auscultation bilaterally AUSCULTATION: clear to auscultation bilaterally Cardio: COMMON NORMALS: no JVD, regular rhythm, S1 normal heart sound present, S2 normal heart sound present and No murmurs present (Cardio) RHYTHM: regular rhythm HEART SOUNDS: S1 normal heart sound present and S2 normal heart sound present GI: COMMON NORMALS: Normal to inspection, nondistended, normoactive bowel so unds present, Soft to palpation and non-tender PALPATION: Yes Soft to palpation Extremity: COMMON NORMALS: no joint enlargement and no pedal edema Neuro: COMMON NORMALS: patient oriented x3 and moves all extremities SENSORIUM/ORIENTATION: Yes alert Skin: COMMON NORMALS: no rashes or lesions noted GENERAL SKIN EXAM: no rashes or lesions noted Urinary Catheter Management^: Jean: Cath Placed During This Visit: yes, but has since been removed by the nurse Reason for Continuing Indwelling Catheter: Decision to DC Catheter Urinary Catheter Date of Insertion: 04/17/21 Urinary Catheter Time of Insertion: 14:36 Date Urinary Catheter Removed: 04/24/21 Time Urinary Catheter Discontinued: 17:14 Data : 04/25/21 06:16 04/25/21 06:16 Micro: Microbiology 04/22/21 15:03 Urine Culture - Preliminary Urine,Clean Catch Yeast 04/24/21 10:23 MRSA Culture - Final Nose A&P Assessment and plan (1) COVID-19: FiO2 requirement slightly improved today. Subjectively she is feeling a bit better. She is trying to provide a sputum sample, but does not really have anything to bring up. Today with noted bump in BUN, slight increase in creatinine to 1.1. Slight increase in sodium to 147. Appears somewhat dry. We have given her a small 100 mL D5 infusion as she is appearing more on dehydrated side. Monitor for any signs of fluid overload. D-dimer has been decreasing. Noted DVT on duplex. De-escalate anticoagulation to prophylactic dose Lovenox. Continue remdesivir, Decadron. Empiric Levaquin. Discussed with her and her daughter. Mild cardiomegaly noted on chest x-ray. Monitor for any signs of fluid overload. Continue I&O. Daily weights. Has been on HCTZ. BUN somewhat rising. Diuretics held for now. duoneb q6h, budesonide q12h empiric levaquin. Rising leukocytosis. Collect sputum culture. MRSA PCR negative. Flutter valve/spirometer at bedside S/p ACTEMRA on 04/17 Status: Acute (2) Hypoxia: As a result of COVID 19 pneumonia Status: Acute (3) Hyponatremia: Resolved. Hold chlorthalidone Status: Acute Additional A&P Information Yeast UTI: Diflucan Attestations Medical Necessity Statement*: Continue admission for hypoxic respiratory failure, treatment of severe COVID-19. Coding Level of Care Code Acute Disaster Recovery Manager for [facility] Diagnoses COVID-19 U07.1 Hypoxia R09.02 Hyponatremia E87.1
[2021-04-25] MEDS: enoxaparin 40 mg/0.4 mL Syringe SUBCUT (15:30)
[2021-04-25 17:22] LABS: Glucose Point of Care 182 mg/dL (70-110)
[2021-04-25] MEDS: remdesivir 100 MG in sodium chloride 0.9% (100 ml) 100 ML IV (17:44)
[2021-04-25] MEDS: dexamethasone 4 mg/mL INJ 6 MG IVP (17:45)
[2021-04-25 22:51] LABS: Glucose Point of Care 270 mg/dL (70-110)
[2021-04-26] VITALS (14 sets, daily range): BP systolic 116–140; BP diastolic 55–78; PULSE 82–100; RESP 16–90; TEMP 36.3–37.1; O2SAT 88–94
[2021-04-26] MEDS: ipratropium-albuterol 3 mL Neb INHALATION ×4 (02:11→20:10)
[2021-04-26 06:52] LABS: Glucose Point of Care 306 mg/dL (70-110)
[2021-04-26 08:08] LABS: Basophils # 0.1 10^3/uL (0.0-0.1); Basophils % 0.3 %; Hematocrit 42.1 % (37.0-47.0); Hemoglobin 13.7 g/dL (11.5-15.3); Lymphocytes # 0.4 10^3/uL (0.8-4.8); Lymphocytes % 2.3 %; Mean Corpuscular HGB Conc 32.5 g/dL (30.0-36.0); Mean Corpuscular Hemoglobin 28.5 pg (28.0-34.0); Mean Corpuscular Volume 87.7 fL (81-99); Monocytes # 0.5 10^3/uL (0.2-0.9); Monocytes % 2.7 %; Neutrophils # 15.56 10^3/uL (1.8-7.7); Neutrophils % 89.9 %; Nucleated Red Blood Cells % 0 %; Platelet Count 194 10^3/cmm (130-400); Red Cell Distribution Width 14.9 % (12.1-15.1); White Blood Count 17.3 10^3/uL (4.0-10.0)
[2021-04-26 08:35] LABS: Alanine Aminotransferase 14 U/L (0-33); Albumin Level 3.2 g/dL (3.5-5.2); Alkaline Phosphatase 84 IU/L (35-105); Blood Urea Nitrogen 55 mg/dL (8-23); Carbon Dioxide 22 mmol/L (22-29); Chloride 110 mmol/L (98-107); Globulin 2.4 g/dL (1.3-4.6); Glucose 291 mg/dL (65-115); Osmolality Calculated 328 mOsm/kg (285-295); Sodium 146 mmol/L (136-145); Total Bilirubin 0.6 mg/dL (0.15-1.2); Total Protein 5.6 g/dL (6.6-8.7)
[2021-04-26 08:41] LABS: Anion Gap 18.1 (5-19); Aspartate Amino Transferase 24 U/L (0-32); Potassium 4.1 mmol/L (3.5-5.1)
[2021-04-26] MEDS: budesonide 0.5 mg/2 mL Neb INHALATION ×2 (09:37→20:10)
--- NOTE | 2021-04-26 10:43 | PC.SOCIAL ---
IMM Update Pg. 2 of IMM updated with patient's son over the phone. Verbalized understanding. Initialed, dated, and timed copy in chart.
[2021-04-26] MEDS: levoFLOXacin 750 mg Tablet PO (11:10)
[2021-04-26] MEDS: fluoxetine 20 mg Capsule PO (11:10)
[2021-04-26] MEDS: pantoprazole DR 40 mg Tablet PO ×2 (11:10→20:05)
[2021-04-26] MEDS: insulin glargine 100 units/1 mL 10 UNIT SUBCUT (11:11)
[2021-04-26] MEDS: levothyroxine 150 mcg Tablet PO (11:11)
[2021-04-26] MEDS: amlodipine 10 mg Tablet PO (11:11)
[2021-04-26] MEDS: aspirin 81 mg EC Tablet PO (11:11)
[2021-04-26] MEDS: fluconazole 100 mg Tablet 200 MG PO (11:11)
--- NOTE | 2021-04-26 11:39 | PM.PN ---
Subjective Subjective: Interval history: Denies any new symptoms. No chest pain or pressure. Overall is doing okay on the current oxygen settings. Vitals/I&O/Wt Last Vital Signs Temp 97.9 F 04/26/21 07:55 Pulse 98 04/26/21 09:37 Resp 26 H 04/26/21 09:37 BP 140/69 04/26/21 07:55 Pulse Ox 89 L 04/26/21 09:37 04/25/21 04/26/21 04/26/21 22:59 06:59 14:59 Intake Total 340 / 540 120 / 120 Output Total 600 / 600 Balance 340 / 540 -600 / -60 120 / 120 Weight last 48 hrs Weight 130.589 kg Weight 133.764 kg Physical Exam Const: COMMON NORMALS: no acute distress, patient oriented x3 and alert NUTRITIONAL APPEARANCE: obese morbidly obese ORIENTATION/CONSCIOUSNESS: Yes awake HENMT: COMMON NORMALS: oropharynx normal Neck/C-Spine: COMMON NORMALS: no JVD Resp: COMMON NORMALS: normal respiratory effort and clear to auscultation bilaterally AUSCULTATION: clear to auscultation bilaterally Cardio: COMMON NORMALS: no JVD, regular rhythm, S1 normal heart sound present, S2 normal heart sound present and No murmurs present (Cardio) RHYTHM: regular rhythm HEART SOUNDS: S1 normal heart sound present and S2 normal heart sound present GI: COMMON NORMALS: Normal to inspection, nondistended, normoactive bowel sounds present, Soft to palpation and non-tender PALPATION: Yes Soft to palpation Extremity: COMMON NORMALS: no joint enlargement and no pedal edema Neuro: COMMON NORMALS: patient oriented x3 and moves all extremities SENSORIUM/ORIENTATION: Yes alert Skin: COMMON NORMALS: no rashes or lesions noted GENERAL SKIN EXAM: no rashes or lesions noted Urinary Catheter Management^: Jean: Cath Placed During This Visit: yes, but has since been removed by the nurse Reason for Continuing Indwelling Catheter: Decision to DC Catheter Urinary Catheter Date of Insertion: 04/17/21 Urinary Catheter Time of Insertion: 14:36 Date Urinary Catheter Removed: 04/24/21 Time Urinary Catheter Discontinued: 17:14 Data : 04/26/21 05:54 04/26/21 05:54 Micro: Microbiology 04/25/21 15:52 Gram Stain - Final Sputum - Expectorated Sputum A&P Assessment and plan (1) COVID-19: Oxygen saturation fluctuating somewhat, but feels comfortable on current settings. Continue supportive care. Completes extended remdesivir course today. Continue Decadron. FiO2 requirement slightly improved today. Subjectively she is feeling a bit better. She is trying to provide a sputum sample, but does not really have anything to bring up. Today with noted bump in BUN, slight increase in creatinine to 1.1. Slight increase in sodium to 147. Appears somewhat dry. We have given her a small 100 mL D5 infusion as she is appearing more on dehydrated side. Monitor for any signs of fluid overload. D-dimer has been decreasing. Noted no DVT on duplex. De-escalated anticoagulation to prophylactic dose Lovenox. Empiric Levaquin. Mild cardiomegaly noted on chest x-ray. Monitor for any signs of fluid overload. Continue I&O. Daily weights. Has been on HCTZ. BUN somewhat rising. Diuretics held for now. In fact more on the dry side, with BUN elevated at 55, hyponatremia 146, creatinine up to 1.1. Cautiously repeat 100 mL D5W. Oral intake as tolerating. duoneb q6h, budesonide q12h Sputum culture, so far on Gram stain few gram-positive cocci in clusters. Rare budding yeast. Rare gram-positive rods. Follow-up. MRSA PCR negative. Flutter valve/spirometer at bedside S/p ACTEMRA on 04/17 Status: Acute (2) Hypoxia: As a result of COVID 19 pneumonia Status: Acute (3) Hyponatremia: Resolved. Now hypernatremic. Hold chlorthalidone Status: Acute Additional A&P Information Yeast UTI: Diflucan Diabetes with hyperglycemia: Sliding scale insulin. Added Lantus. Increase Lantus dose to 13 units. Attestations Medical Necessity Statement*: Continue admission for hypoxic respiratory failure secondary to severe COVID-19. Coding Level of Care Code Acute Distribution Supervisor for [facility] Fwd Exam Comprehensive Diagnoses COVID-19 U07.1 Hypoxia R09.02 Hyponatremia E87.1
[2021-04-26] MEDS: enoxaparin 40 mg/0.4 mL Syringe SUBCUT (16:38)
[2021-04-26 17:33] LABS: Glucose Point of Care 198 mg/dL (70-110)
[2021-04-26] MEDS: remdesivir 100 MG in sodium chloride 0.9% (100 ml) 100 ML IV (18:03)
[2021-04-26] MEDS: dexamethasone 4 mg/mL INJ 6 MG IVP (18:09)
[2021-04-26 21:14] LABS: Glucose Point of Care 281 mg/dL (70-110)
[2021-04-26 21:48] LABS: Glucose Point of Care 164 mg/dL (70-110)
[2021-04-27] VITALS (19 sets, daily range): BP systolic 123–146; BP diastolic 64–74; PULSE 85–109; RESP 18–28; TEMP 36.3–36.7; O2SAT 80–97
[2021-04-27] MEDS: ipratropium-albuterol 3 mL Neb INHALATION ×4 (02:05→20:40)
[2021-04-27 05:10] LABS: Basophils # 0.1 10^3/uL (0.0-0.1); Basophils % 0.4 %; Hematocrit 40.2 % (37.0-47.0); Lymphocytes # 0.3 10^3/uL (0.8-4.8); Lymphocytes % 1.6 %; Mean Corpuscular HGB Conc 32.3 g/dL (30.0-36.0); Mean Corpuscular Hemoglobin 28.1 pg (28.0-34.0); Mean Corpuscular Volume 86.8 fL (81-99); Mean Platelet Volume 12.5 fL (7.4-10.4); Monocytes # 0.3 10^3/uL (0.2-0.9); Monocytes % 1.8 %; Neutrophils # 16.91 10^3/uL (1.8-7.7); Neutrophils % 91.8 %; Nucleated Red Blood Cells % 0 %; Platelet Count 172 10^3/cmm (130-400); Red Blood Count 4.63 10^6/uL (4.1-5.3); Red Cell Distribution Width 14.9 % (12.1-15.1); White Blood Count 18.4 10^3/uL (4.0-10.0)
[2021-04-27 05:17] LABS: D Dimer 2.88 ug/mIFEU (0-0.59)
--- NOTE | 2021-04-27 05:26 | PC.NURSE ---
Shift Note Frequent safety and comfort rounds continue. Orders and/or nursing care completed as indicated. Patient monitored for response to intervention and treatment(s). Education provided includes oxygen safety. Patient and/or sales representative marine supplies verbalized understanding. Will continue to monitor.
[2021-04-27 05:31] LABS: Alanine Aminotransferase 17 U/L (0-33); Albumin Level 3.1 g/dL (3.5-5.2); Alkaline Phosphatase 75 IU/L (35-105); Blood Urea Nitrogen 51 mg/dL (8-23); Carbon Dioxide 22 mmol/L (22-29); Chloride 108 mmol/L (98-107); Glucose 294 mg/dL (65-115); Osmolality Calculated 325 mOsm/kg (285-295); Sodium 145 mmol/L (136-145); Total Bilirubin 0.7 mg/dL (0.15-1.2); Total Protein 5.1 g/dL (6.6-8.7)
[2021-04-27 05:36] LABS: Anion Gap 19.3 (5-19); Aspartate Amino Transferase 22 U/L (0-32); Potassium 4.3 mmol/L (3.5-5.1)
[2021-04-27 06:46] LABS: Glucose Point of Care 247 mg/dL (70-110)
[2021-04-27] MEDS: levothyroxine 150 mcg Tablet PO (09:22)
[2021-04-27] MEDS: levoFLOXacin 750 mg Tablet PO (09:22)
[2021-04-27] MEDS: fluoxetine 20 mg Capsule PO (09:23)
[2021-04-27] MEDS: amlodipine 10 mg Tablet PO (09:23)
[2021-04-27] MEDS: pantoprazole DR 40 mg Tablet PO ×2 (09:23→20:34)
[2021-04-27] MEDS: aspirin 81 mg EC Tablet PO (09:23)
[2021-04-27] MEDS: sodium chloride 0.9% 1,000 ML 75 ML IV ×2 (09:23→23:51)
[2021-04-27] MEDS: fluconazole 100 mg Tablet 200 MG PO (09:23)
[2021-04-27] MEDS: insulin glargine 100 units/1 mL 13 UNIT SUBCUT (09:24)
--- NOTE | 2021-04-27 09:48 | PC.CHAP ---
Pastoral Care Encounter/Spiritual Assessment Type of Contact [] Declined fiber optic technician visit [] Patient/Family/Request visit [] Outpatient visit [] Follow-up visit [] Physician referral [] Code/Alert [x] Routine visit [] Staff referral [] Actively dying [] Patient sleeping [] Family support [] [] Out of room [] Palliative care [] [] Receiving care in room [] Pre-surgical visit [] Trauma [] Long length of stay [] ICU visit [x] Other:covid Relational/Emotional Strength [] Patient feels connected with others/family/visitors/staff [] Distress [] Loneliness/isolation [] Abandonment Spirituality of Patient [] Person of Corina [] Attends Zoroastrianism of their Corina [] Believes in Prayer [] Reads Bible or Druze materials [] There are Spiritual issues to be addressed Assistant Director Of Public Works Interventions [x] Prayer [] Active listening [] Non-anxious presence [] Spiritual/emotional support [] Crisis/trauma care [] Spiritual counseling [] Bereavement support [] Provided bereavement packet [] Provided Bible/devotional materials [] Provided toy/stuffed animal, coloring book to patient or family member [] Provided Communion [] Anointing/Murphy [] Salvation [x] Completed spiritual assessment [] Other: Impact on Illness or Injury [] Angry [] Fearful [] Anxious [] Often cries [] Exhaustion [] Unable to work [] Unable to attend mosque [] Unable to walk/stand [] Unable to read [] Unable to drive [] Unable to eat/drink [] Unable to sleep [] Unable to be with family [] Patient intubated [] Other: Summary Time spent with patient
[2021-04-27 09:56] LABS: Thyroid Stimulating Hormone 0.19 uIU/mL (0.27-4.20)
[2021-04-27 09:57] LABS: NT Pro B Type Natriuretic Pept 187 pg/mL (0-125)
[2021-04-27] MEDS: budesonide 0.5 mg/2 mL Neb INHALATION ×2 (09:59→20:39)
[2021-04-27 10:08] LABS: Iron 73 ug/dL (37-145)
[2021-04-27 11:00] LABS: Percent Saturation 33.1 % (20-50); Total Iron Binding Capacity 220 mcg/dl
[2021-04-27 11:01] LABS: Unsaturated Iron Binding 147 ug/dL (112-347)
[2021-04-27 11:47] LABS: Glucose Point of Care 325 mg/dL (70-110)
[2021-04-27] MEDS: zinc gluconate 50 mg Tablet PO (11:53)
[2021-04-27] MEDS: apixaban 5 mg Tablet PO ×2 (11:53→20:35)
[2021-04-27] MEDS: benzonatate 100 mg Capsule PO ×3 (11:53→20:35)
[2021-04-27 17:17] LABS: Glucose Point of Care 238 mg/dL (70-110)
--- NOTE | 2021-04-27 17:25 | PM.PN ---
Subjective Subjective: Interval history: Hospital course, labs appreciated. Patient continues to be on 100% BiPAP saturating 9091%. During the day she was transitioned over to heated high flow 15 L 100% saturating 91%. Patient denied any further complaints. We discussed for her to continue doing incentive spirometry and flutter valve regularly. We also discussed of prone to semiprone position when possible. Vitals/I&O/Wt Last Vital Signs Temp 97.5 F L 04/27/21 16:00 Pulse 93 04/27/21 16:00 Resp 22 H 04/27/21 16:00 BP 145/69 04/27/21 16:00 Pulse Ox 89 L 04/27/21 16:00 04/27/21 04/27/21 04/27/21 06:59 14:59 22:59 Intake Total 100 / 660 Output Total 350 / 350 Balance -250 / 310 Weight last 48 hrs Weight 132.268 kg Weight 130.589 kg Physical Exam Const: COMMON NORMALS: no acute distress, patient oriented x3 and alert NUTRITIONAL APPEARANCE: obese morbidly obese ORIENTATION/CONSCIOUSNESS: Yes awake HENMT: COMMON NORMALS: oropharynx normal Neck/C-Spine: COMMON NORMALS: no JVD Resp: COMMON NORMALS: normal respiratory effort and clear to auscultation bilaterally AUSCULTATION: clear to auscultation bilaterally Cardio: COMMON NORMALS: no JVD, regular rhythm, S1 normal heart sound present, S2 normal heart sound present and No murmurs present (Cardio) RHYTHM: regular rhythm HEART SOUNDS: S1 normal heart sound present and S2 normal heart sound present GI: COMMON NORMALS: Normal to inspection, nondistended, normoactive bowel sounds present, Soft to palpation and non-tender PALPATION: Yes Soft to palpation Extremity: COMMON NORMALS: no joint enlargement and no pedal edema Neuro: COMMON NORMALS: patient oriented x3 and moves all extremities SENSORIUM/ORIENTATION: Yes alert Skin: COMMON NORMALS: no rashes or lesions noted GENERAL SKIN EXAM: no rashes or lesions noted Urinary Catheter Management^: Jean: Cath Placed During This Visit: yes, but has since been removed by the nurse Reason for Continuing Indwelling Catheter: Decision to DC Catheter Urinary Catheter Date of Insertion: 04/17/21 Urinary Catheter Time of Insertion: 14:36 Date Urinary Catheter Removed: 04/24/21 Time Urinary Catheter Discontinued: 17:14 Data : 04/28/21 10:50 04/28/21 10:50 Micro: Microbiology 04/22/21 15:03 Urine Culture - Preliminary Urine,Clean Catch Yeast 04/25/21 15:52 Gram Stain - Final Sputum - Expectorated Sputum Sputum Culture - Preliminary A&P Assessment and plan (1) COVID-19: Status: Acute (2) Hypoxia: As a result of COVID 19 pneumonia Status: Acute (3) Hyponatremia: Now hypernatremic. Hold chlorthalidone. Status: Acute Additional A&P Information Hypoxia secondary to COVID-19 pneumonia: Severe disease. ARDS. Oxygen supplementation keeping saturation over 88%. Post Actemra on April 17. Dexamethasone 6 mg daily. Will finish a 10-day course. Patient has finished 5-day course of remdesivir. Vitamin C, zinc. DuoNebs every 4 hour, budesonide twice daily Pulmonary toilet with incentive spirometry flutter valve. We will monitor inflammatory markers including ferritin, ESR, CRP, D-dimer, fibrinogen. D-dimer elevated. CTA negative for pulmonary embolism. For now we will start patient on full dose anticoagulation given that patient requiring high oxygen supplementation. Will monitor for anemia or blood loss. Check results appreciated. Procalcitonin negative. Patient is currently on oxygen. Initial 7-day course. Low suspicion of bacterial infection for now even though patient has leukocytosis. Continue with Diflucan to finish a 7-day course. Given hypoxia will try to keep patient as negative as possible. Patient clinically dehydrated for now and ongoing hyponatremia, elevated BUN/creatinine. For now continue with gentle hydration with normal saline at 75 cc/h. Monitor for fluid overload.. Strict input output charting, daily weights. Yeast UTI: Diflucan Diabetes with hyperglycemia: Check HbA1c. Patient got first dose of Lantus 13 units today. Continue insulin sliding scale. Will uptitrate medications as per blood sugars. Full code. Full dose Lovenox will help with DVT prophylaxis as well. Famotidine for PUD prophylaxis. Cardiac carb consistent. Attestations Medical Necessity Statement*: Requires further hospitalization for management of significant ARDS, BiPAP dependent in setting of COVID-19 pneumonia. Time Spent in Patient Care: Greater than 35 minutes (>than 50% of time spent in counselling and/or direct pt care on unit). Coding Level of Care Code Acute Analysis Director for [facility] Diagnoses COVID-19 U07.1 Hypoxia R09.02 Hyponatremia E87.1
--- NOTE | 2021-04-27 17:52 | PC.RESP ---
RT Shift Note Frequent safety and respiratory rounds continue. Orders completed as indicated. Patient monitored pre and post treatments throughout shift. Patient tolerated treatments appropriately. Condition improved . Patient and/or sales representative door to door educated on respiratory treatment and medications. Patient and/or sales representative door to door asked questions and verbalized understanding. Will continue to monitor patient progress.
[2021-04-27] MEDS: ascorbic acid 500 mg Tablet 1000 MG PO (18:26)
[2021-04-27] MEDS: dexamethasone 4 mg/mL INJ 6 MG IVP (18:26)
[2021-04-27] MEDS: ferrous gluconate 324 mg Tablet PO (18:27)
[2021-04-27 19:52] LABS: Glucose Point of Care 243 mg/dL (70-110)
[2021-04-28] VITALS (17 sets, daily range): BP systolic 114–154; BP diastolic 58–81; PULSE 74–103; RESP 17–27; TEMP 36.6–37; O2SAT 81–96; BMI 50.0
[2021-04-28] MEDS: ipratropium-albuterol 3 mL Neb INHALATION ×7 (00:51→23:52)
--- NOTE | 2021-04-28 05:00 | USCV_ITS ---
Bree Chapa Age: 75 Gender: F : 1945 Exam Date: 04/28/2021 07:03 Ordering Phys: Mathew Dela Cruz MD Technologist: Elsa Lebron [place]am [place] [facility] [place] Indication: POSSIBLE CHF BP: 140 / 70 HR: 89 Rhythm: Sinus Technical Quality: Technically difficult study MEASUREMENTS (Male / Female) Normal Values 2D ECHO LV Diastolic Diameter PLAX 3.2 cm 4.2 - 5.9 / 3.9 - 5.3 cm LV Systolic Diameter PLAX 2.5 cm IVS Diastolic Thickness 1.2 cm 0.6 - 1.0 / 0.6 - 0.9 cm IVS Systolic Thickness 2.0 cm LVPW Diastolic Thickness 1.3 cm 0.6 - 1.0 / 0.6 - 0.9 cm LVPW Systolic Thickness 1.9 cm RV Chamber Size 3.6 cm LVOT Diameter 2.0 cm LV Ejection Fraction 2D Teich 43.4 % LV Ejection Fraction MOD 2C 19.1 % LV Ejection Fraction 2C AL 20.9 % LA Diameter 2.9 cm LA Width 3.2 cm LA Height 4.6 cm RA Width 4.0 cm RA Height 5.1 cm Aorta at Sinotubular Diameter 2.5 cm DOPPLER AV Peak Velocity 198.0 cm/s LVOT Peak Velocity 130.0 cm/s AV Area Cont Eq vti 2.2 cm squared AV Area Cont Eq pk 2.1 cm squared MV Area PHT 5.0 cm squared Mitral E to A Ratio 0.8 MV E' Velocity 40.0 cm/s Mitral E to MV E' Ratio 8.5 Mitral E to LV E' Lateral Ratio 10.0 Mitral E to LV E' Septal Ratio 7.4 TR Peak Velocity 330.0 cm/s TR Peak Gradient 43.6 mmHg TV Peak E Velocity 94.0 cm/s Right Atrial Pressure 3.0 mmHg Pulmonary Artery Systolic Pressu 46.6 mmHg PV Peak Velocity 114.0 cm/s RV Acceleration Time 0.1 s RV Ejection Time 0.3 s RV AcT/ET 0.3 FINDINGS Left Ventricle Normal left ventricular cavity size. Normal left ventricular systolic function. Left ventricular ejection fraction is estimated at 60%. No regional wall motion abnormalities. Right Ventricle Normal right ventricular size and systolic function. Right ventricular systolic pressure 53 mmHg. Right Atrium Right atrium not well visualized. Left Atrium Probably upper normal left atrial size. Mitral Valve Thickened mitral valve. Aortic Valve Aortic valve not well visualized. Thickened and calcified aortic valve. Probably mild aortic valve stenosis, mean gradient 7.7 mmHg, JOSÉ MIGUEL 2.2 cm squared. Tricuspid Valve Tricuspid valve not well visualized. Pulmonic Valve Pulmonic valve not well visualized. Pericardium No pericardial effusion. Aorta Aorta not well visualized. Inferior vena cava not well visualized. CONCLUSIONS 1. This is a technically difficult study. 2. Normal left ventricular cavity size. Normal left ventricular systolic function. Left ventricular ejection fraction is estimated at 60%. No diagnostic regional wall motion abnormalities. 3. Pulmonary artery pressure moderately increased estimated at 53 mmHg. 4. Thickened and calcified aortic valve. Probably mild aortic valve stenosis, mean gradient 7.7 mmHg, JOSÉ MIGUEL 2.2 cm squared. 5. No prior similar studies to compare. Elvie Moreno MD (Electronically Signed) Final Date: 28 April 2021 16:02 S
--- NOTE | 2021-04-28 05:41 | PC.NURSE ---
Pt remained on bipap for the entirety of the night with no acute events. Mild desaturation when getting up to BSC, but recovered quickly.
--- NOTE | 2021-04-28 05:53 | PC.RESP ---
RT Shift Note Frequent safety and respiratory rounds continue. Orders completed as indicated. Patient monitored pre and post treatments throughout shift. Patient did tolerate treatments appropriately. Condition did not change. Patient educated on respiratory treatment and medications. Patient and/or circulation sales representative verbalized understanding. Will continue to monitor patient progress.
[2021-04-28 06:40] LABS: Glucose Point of Care 361 mg/dL (70-110)
[2021-04-28] MEDS: budesonide 0.5 mg/2 mL Neb INHALATION ×2 (07:51→20:39)
--- NOTE | 2021-04-28 08:42 | XRR_ITS ---
PROCEDURE INFORMATION: Exam: XR Chest Exam date and time: 04/28/2021 8:42 AM Age: 75 years old Clinical indication: Condition or disease; Other: Covid TECHNIQUE: Imaging protocol: XR of the chest. Views: 1 view. COMPARISON: CR (CHEST, ) 04/21/2021 4:47 AM FINDINGS: Lungs: Diffuse bilateral interstitial pulmonary infiltrates are present. Pleural spaces: Unremarkable. No pleural effusion. No pneumothorax. Heart/Mediastinum: Unremarkable. No cardiomegaly. Bones/joints: Unremarkable. XR/XR chest 1V portable [id number] IMPRESSION: Stable bilateral pulmonary infiltrates consistent with a viral pneumonia.
[2021-04-28] MEDS: pantoprazole DR 40 mg Tablet PO ×2 (08:51→19:36)
[2021-04-28] MEDS: aspirin 81 mg EC Tablet PO (08:51)
[2021-04-28] MEDS: amlodipine 10 mg Tablet PO (08:51)
[2021-04-28] MEDS: apixaban 5 mg Tablet PO ×2 (08:51→19:36)
[2021-04-28] MEDS: fluoxetine 20 mg Capsule PO (08:51)
[2021-04-28] MEDS: zinc gluconate 50 mg Tablet PO (08:51)
[2021-04-28] MEDS: benzonatate 100 mg Capsule PO ×3 (08:52→19:36)
[2021-04-28] MEDS: fluconazole 100 mg Tablet 200 MG PO (08:52)
[2021-04-28] MEDS: levothyroxine 150 mcg Tablet PO (08:52)
[2021-04-28] MEDS: ascorbic acid 500 mg Tablet PO ×2 (09:55→17:39)
[2021-04-28] MEDS: insulin glargine 100 units/1 mL 15 UNIT SUBCUT ×2 (10:00→17:42)
--- NOTE | 2021-04-28 10:14 | PC.NUTR ---
Nutrition follow up: Po intakes averaging 34% of recorded meals. Recommend to encourage po intakes of meals/supplements to optimize nutrition. Noted elevated glucose, however with po intakes < 50%, recommend to continue with supplement for additional kcal/protein. Pt does not drink Glucerna (see previous assessments).
[2021-04-28 11:25] LABS: Basophils # 0.1 10^3/uL (0.0-0.1); Basophils % 0.5 %; Hemoglobin 13.2 g/dL (11.5-15.3); Lymphocytes # 0.4 10^3/uL (0.8-4.8); Lymphocytes % 1.6 %; Mean Corpuscular HGB Conc 30.7 g/dL (30.0-36.0); Mean Corpuscular Hemoglobin 28.6 pg (28.0-34.0); Mean Corpuscular Volume 93.1 fL (81-99); Mean Platelet Volume 12.3 fL (7.4-10.4); Monocytes # 0.8 10^3/uL (0.2-0.9); Monocytes % 3.7 %; Neutrophils # 19.91 10^3/uL (1.8-7.7); Neutrophils % 89.9 %; Nucleated Red Blood Cells % 0 %; Platelet Count 154 10^3/cmm (130-400); Red Blood Count 4.62 10^6/uL (4.1-5.3); Red Cell Distribution Width 15.3 % (12.1-15.1); White Blood Count 22.2 10^3/uL (4.0-10.0)
[2021-04-28 11:33] LABS: Glucose Point of Care 304 mg/dL (70-110)
[2021-04-28 11:43] LABS: D Dimer 2.85 ug/mIFEU (0-0.59)
[2021-04-28 11:48] LABS: ABG PCO2 31.8 mmHg (35-45); ABG PH Result 7.43 (7.35-7.45); Alveolar-Arterial Oxygen Gradi 81.4 mmHg (5-10); Arterial Blood Gas Hematocrit 41.4 % (37-47); Base Excess ABG -2.1 mmol/L (-2.0-2.0); Blood Gas Allen Test Pos; Blood Gas Sample Site Brachial, right; Blood Gas Sample Type Arterial; Carboxyhemoglobin 0.9 %THgb (0.4-20.1); HCO3 ABG 21.3 mmol/L (22-26); HGB O2 Sat 84.9 % (95-100); Ionized Calcium Level - ABG 1.2 mmol/L (1.1-1.4); Methemoglobin 0.6 % (0.4-1.5); Oxygen Saturation ABG 86.1; PO2 ABG 47.1 mmHg (80.0-100.0); Potassium Level - ABG 3.3 mmol/L (3.5-5.0); Total Hemoglobin 13.5 g/dL (12-16)
[2021-04-28 11:58] LABS: Estmated Average Glucose 209; Hemoglobin A1C 8.9 % (4.0-6.0)
[2021-04-28 12:13] LABS: Alanine Aminotransferase 17 U/L (0-33); Albumin Level 3.2 g/dL (3.5-5.2); Alkaline Phosphatase 98 IU/L (35-105); Anion Gap 16.6 (5-19); Aspartate Amino Transferase 20 U/L (0-32); Blood Urea Nitrogen 40 mg/dL (8-23); C Reactive Protein 2.9 mg/L (0.0-4.9); Calcium 7.9 mg/dL (8.5-10.5); Carbon Dioxide 19 mmol/L (22-29); Chloride 110 mmol/L (98-107); Ferritin 835 ng/mL (15-150); Globulin 2.1 g/dL (1.3-4.6); Glucose 276 mg/dL (65-115); NT Pro B Type Natriuretic Pept 388 pg/mL (0-125); Osmolality Calculated 314 mOsm/kg (285-295); Potassium 3.6 mmol/L (3.5-5.1); Sodium 142 mmol/L (136-145); Total Bilirubin 0.7 mg/dL (0.15-1.2); Total Protein 5.3 g/dL (6.6-8.7)
--- NOTE | 2021-04-28 12:48 | PC.SOCIAL ---
IMM update IMM not updated as patient isn't expected to dc in the next 24-48 hours.
[2021-04-28 12:55] LABS: Oxygen Device HAG
[2021-04-28 13:25] LABS: Free T4 Free Thyroxine 2.48 ng/dL (0.82-1.77); T3 Free 1.5 PG/ML (2.0-4.4)
--- NOTE | 2021-04-28 13:34 | PC.NURSE ---
Updated patients Juan durán on patient.
--- NOTE | 2021-04-28 14:32 | PM.PN ---
Subjective Subjective: Interval history: No acute events overnight. Patient had overnight she maintained on 100% BiPAP. Today morning she was transitioned to heated high flow 95% 50 L saturating 91%. Patient denies any new complaints. Does not look tachypneic and looks comfortable on examination. We had goals of care and code discussion during the day today. Patient states she would not want to be on a ventilator if needed. Patient is trying to do incentive spirometry and flutter valve as much as possible. Vitals/I&O/Wt Last Vital Signs Temp 98.0 F 04/28/21 12:00 Pulse 90 04/28/21 14:00 Resp 22 H 04/28/21 12:00 BP 114/70 04/28/21 12:00 Pulse Ox 91 04/28/21 12:00 04/27/21 04/28/21 04/28/21 22:59 06:59 14:59 Intake Total 120 / 120 1000 / 1120 1282.5 / 1282.5 Output Total 1400 / 1400 Balance 120 / 120 -400 / -280 1282.5 / 1282.5 Weight last 48 hrs Weight 132.268 kg Weight 132.268 kg Physical Exam Const: COMMON NORMALS: no acute distress, patient oriented x3 and alert NUTRITIONAL APPEARANCE: obese morbidly obese ORIENTATION/CONSCIOUSNESS: Yes awake HENMT: COMMON NORMALS: oropharynx normal Neck/C-Spine: COMMON NORMALS: no JVD Resp: COMMON NORMALS: normal respiratory effort and clear to auscultation bilaterally AUSCULTATION: clear to auscultation bilaterally Cardio: COMMON NORMALS: no JVD, regular rhythm, S1 normal heart sound present, S2 normal heart sound present and No murmurs present (Cardio) RHYTHM: regular rhythm HEART SOUNDS: S1 normal heart sound present and S2 normal heart sound present GI: COMMON NORMALS: Normal to inspection, nondistended, normoactive bowel sounds present, Soft to palpation and non-tender PALPATION: Yes Soft to palpation Extremity: COMMON NORMALS: no joint enlargement and no pedal edema Neuro: COMMON NORMALS: patient oriented x3 and moves all extremities SENSORIUM/ORIENTATION: Yes alert Skin: COMMON NORMALS: no rashes or lesions noted GENERAL SKIN EXAM: no rashes or lesions noted Urinary Catheter Management^: Jean: Cath Placed During This Visit: yes, but has since been removed by the nurse Reason for Continuing Indwelling Catheter: Decision to DC Catheter Urinary Catheter Date of Insertion: 04/17/21 Urinary Catheter Time of Insertion: 14:36 Date Urinary Catheter Removed: 04/24/21 Time Urinary Catheter Discontinued: 17:14 Data : 04/28/21 10:50 04/28/21 10:50 Micro: Microbiology 04/25/21 15:52 Gram Stain - Final Sputum - Expectorated Sputum Sputum Culture - Final 04/27/21 19:20 Blood Culture - Preliminary Blood SPECIMEN COLLECTED 04/27/21 19:38 Blood Culture - Preliminary Blood SPECIMEN COLLECTED 04/27/21 12:16 MRSA Culture - Final Nose 04/22/21 15:03 Urine Culture - Preliminary Urine,Clean Catch Yeast A&P Assessment and plan (1) ARDS (adult respiratory distress syndrome): Status: Acute (2) COVID-19: Status: Acute (3) Hypoxia: As a result of COVID 19 pneumonia Status: Acute (4) DARNELL (acute kidney injury): Status: Acute (5) Hypernatremia: Status: Acute (6) BiPAP (biphasic positive airway pressure) dependence: Status: Acute Additional A&P Information Hypoxia secondary to COVID-19 pneumonia: Severe disease. ARDS. ABG results appreciated. Oxygen supplementation keeping saturation over 88%. Post Actemra on April 17. Dexamethasone 6 mg daily. On dexamethasone for last 9 days. Change to dexamethasone 3 mg daily for now. Patient has finished 5-day course of remdesivir. Vitamin C, zinc. DuoNebs every 4 hour, budesonide twice daily Pulmonary toilet with incentive spirometry flutter valve. We will monitor inflammatory markers including ferritin, ESR, CRP, D-dimer, fibrinogen. D-dimer elevated. CTA negative for pulmonary embolism. For now we will start patient on full dose anticoagulation given that patient requiring high oxygen supplementation. Will monitor for anemia or blood loss. Check results appreciated. Procalcitonin negative. Patient is currently on oxygen. Initial 7-day course. Low suspicion of bacterial infection for now even though patient has leukocytosis. Continue with Diflucan to finish a 7-day course. Given hypoxia will try to keep patient as negative as possible. Sodium level improving. BUN/creatinine improving as well. For now hold off on any further fluid resuscitation or diuresis. Strict input output charting, daily weights. Yeast UTI: Diflucan Diabetes with hyperglycemia: A1c 8.5. Increase Lantus to 15 units twice daily. Continue insulin sliding scale. Will uptitrate medications as per blood sugars. CODE STATUS: Patient states she would not want to be intubated. She is okay with chest compressions. CODE STATUS changed to limited resuscitation. Full dose Lovenox will help with DVT prophylaxis as well. Famotidine for PUD prophylaxis. Cardiac carb consistent. Tried calling patient's daughter Ms. Holley over the phone but could not reach her so left a message. Discussed patient's health with her son. We discussed that unfortunately patient is still requiring high oxygen supplementation of 200% to keep saturation over 90% patient is 11 days in hospital. We did discuss unfortunately patient is requiring high oxygen supplementation if not able to maintain saturation on current supplementation only thing left would be to put patient on ventilator/mechanical intubation. Also discussed that patient has declined any intubation for now. Son verbalized understanding. We also discussed that only way patient can go to select if she is able to come down to 80% of FiO2 oxygen supplementation requirement before planning for safe transfer. Attestations Medical Necessity Statement*: Requires further hospitalization for management of ARDS, BiPAP dependent in setting of severe COVID-19 pneumonia. Time Spent in Patient Care: Greater than 35 minutes (>than 50% of time spent in counselling and/or direct pt care on unit). Coding Level of Care Code Acute Fishing Line Winding Machine Operator for Jonn De La Fuente Diagnoses ARDS (adult respiratory distress syndrome) J80 COVID-19 U07.1 Hypoxia R09.02 DARNELL (acute kidney injury) N17.9 Hypernatremia E87.0 BiPAP (biphasic positive airway pressure) dependence Z99.89
--- NOTE | 2021-04-28 15:48 | PC.NURSE ---
0745 Report received, assessment completed. Pt resting in bed with bipap in place upon arrival, RT placed pt on HHFNC 50L/100%. O2 sat low 90's to upper 80's. Pt encouraged to breath through nose and use IS and flutter valve. Pt used effectively while this nurse was in room. No other issues noted. 1100 Pt received bed bath and desatted into 70's, recovered well in to the upper 80's. Will monitor.
[2021-04-28 16:42] LABS: Glucose Point of Care 124 mg/dL (70-110)
[2021-04-28] MEDS: dexamethasone 4 mg/mL INJ 3 MG IVP (17:39)
--- NOTE | 2021-04-28 18:15 | PC.NURSE ---
Shift Note Frequent safety and comfort rounds continue. Orders and/or nursing care completed as indicated. Patient monitored for response to intervention and treatment(s). Education provided includes proper breathing techniques to maximize oxygenation. Patient verbalizes understanding but requires frequent reminders. O2 sat drops into upper 60's at times and pt needs to be reminded to breathe properly and requires NRB at times. No other issues noted. Will continue to monitor.
--- NOTE | 2021-04-28 18:19 | PC.RESP ---
RT Shift Note Frequent safety and respiratory rounds continue. Orders completed as indicated. Patient monitored pre and post treatments throughout shift. Patient tolerated treatments appropriately. Condition did not change. Patient and/or medical device sales representative educated on respiratory treatment and medications. Patient and/or medical device sales representative verbalized understanding. Will continue to monitor patient progress.
[2021-04-28 21:35] LABS: Glucose Point of Care 288 mg/dL (70-110)
[2021-04-29] VITALS (10 sets, daily range): BP systolic 135–146; BP diastolic 65–74; PULSE 87–104; RESP 16–25; TEMP 36.7–36.8; O2SAT 84–944; BMI 50.0
[2021-04-29] MEDS: ipratropium-albuterol 3 mL Neb INHALATION ×3 (03:06→12:00)
--- NOTE | 2021-04-29 05:31 | PC.RESP ---
RT Shift Note Frequent safety and respiratory rounds continue. Orders completed as indicated. Patient monitored pre and post treatments throughout shift. Patient did tolerate treatments appropriately. Condition did not change. Patient and/or patient support representative educated on respiratory treatment and medications. Patient and/or patient support representative verbalized understanding. Will continue to monitor patient progress.
--- NOTE | 2021-04-29 05:43 | PC.NURSE ---
At shift change pt was on HHF and non rebreather sating 80-83%. Once patient was placed bipap her sats improved. Mild desaturation with exertion on bipap, and recovers well.
[2021-04-29 07:04] LABS: Glucose Point of Care 249 mg/dL (70-110)
[2021-04-29] MEDS: budesonide 0.5 mg/2 mL Neb INHALATION (08:40)
[2021-04-29] MEDS: insulin glargine 100 units/1 mL 15 UNIT SUBCUT (08:55)
[2021-04-29] MEDS: zinc gluconate 50 mg Tablet PO (08:56)
[2021-04-29] MEDS: fluoxetine 20 mg Capsule PO (08:56)
[2021-04-29] MEDS: fluconazole 100 mg Tablet 200 MG PO (08:56)
[2021-04-29] MEDS: pantoprazole DR 40 mg Tablet PO (08:56)
[2021-04-29] MEDS: aspirin 81 mg EC Tablet PO (08:56)
[2021-04-29] MEDS: ascorbic acid 500 mg Tablet PO (08:56)
[2021-04-29] MEDS: amlodipine 10 mg Tablet PO (08:57)
[2021-04-29] MEDS: benzonatate 100 mg Capsule PO (08:57)
[2021-04-29] MEDS: levothyroxine 125 mcg Tablet PO (08:57)
[2021-04-29] MEDS: apixaban 5 mg Tablet PO (08:59)
--- NOTE | 2021-04-29 10:58 | PC.CHAP ---
Pastoral Care Encounter/Spiritual Assessment Type of Contact [] Declined network liaison visit [] Patient/Family/Request visit [] Outpatient visit [] Follow-up visit [] Physician referral [] Code/Alert [x] Routine visit [] Staff referral [] Actively dying [] Patient sleeping [] Family support [] [] Out of room [] Palliative care [] [] Receiving care in room [] Pre-surgical visit [] Trauma [] Long length of stay [] ICU visit [x] Other: 2A Relational/Emotional Strength [] Patient feels connected with others/family/visitors/staff [] Distress [] Loneliness/isolation [] Abandonment Spirituality of Patient [] Person of Corina [] Attends Protestant of their Corina [] Believes in Prayer [] Reads Bible or Latter Day materials [] There are Spiritual issues to be addressed Boom Supervisor Interventions [x] Prayer [] Active listening [] Non-anxious presence [] Spiritual/emotional support [] Crisis/trauma care [] Spiritual counseling [] Bereavement support [] Provided bereavement packet [] Provided Bible/devotional materials [] Provided toy/stuffed animal, coloring book to patient or family member [] Provided Communion [] Anointing/[place] [] Salvation [x] Completed spiritual assessment [] Other: Impact on Illness or Injury [] Angry [] Fearful [] Anxious [] Often cries [] Exhaustion [] Unable to work [] Unable to attend congregation [] Unable to walk/stand [] Unable to read [] Unable to drive [] Unable to eat/drink [] Unable to sleep [] Unable to be with family [] Patient intubated [] Other: Summary Time spent with patient
[2021-04-29] MEDS: morphine 4 mg/mL SDV 1 mL 1 MG IVP (11:04)
[2021-04-29 11:36] LABS: Glucose Point of Care 219 mg/dL (70-110)
[2021-04-29] MEDS: FUROsemide 40 mg Tablet PO (13:02)
[2021-04-29] MEDS: morphine 4 mg/mL SDV 1 mL IVP ×2 (15:07→16:44)
--- NOTE | 2021-04-29 15:27 | PC.NURSE ---
Report given to Qiana Urbano RN on [facility]. Pt transported via bed. Family aware and will be present with patient upon transfer.
[2021-04-29] MEDS: LORazepam 2 mg/mL INJ 1 mL IVP (16:45)
--- NOTE | 2021-04-29 17:16 | PC.NURSE ---
Confirmed time of 1714 with DANTE Huffman
--- NOTE | 2021-04-29 17:19 | PM.DDS ---
Discharge Providers DDS Date of Admission: 04/17/21 03:14 Date Summary Completed: 04/29/21 Attending Provider at Admission: Tammi Angel MD Time of : 17:15 Attending Provider at Discharge: Mathew Dela Cruz MD Primary Care Provider: DO VALERIO Montano Diagnoses Hospital Diagnoses (1) ARDS (adult respiratory distress syndrome): (2) COVID-19: (3) Hypoxia: (4) DARNELL (acute kidney injury): (5) Hypernatremia: (6) BiPAP (biphasic positive airway pressure) dependence: Reason for Visit Reason for Visit: COVID+:LOW 02 (80s), SOB Summary Date and Time of Date of : 04/29/21 Time of : 17:15 Summary Summary: Bree Chapa is a 75 year old female with a past medical history as outlined below, presented to the ER today due to shortness of breath. She was diagnosed with Covid after she took a home antigen test 3 days ago and there again today was tested positive on the rapid antigen. She complained of hypoxia down to low 80s at home, subjective shortness of breath therefore presented to the ER. Chest x-ray showed bilateral infiltrates consistent with COVID-19, CRP elevated at 170, hyponatremia 123. Is currently on supplemental O2 at 4 L/min saturating 89 to 90%. Past history of sleep apnea present, uses CPAP at home. Denies chest pain or palpitations at this time. Patient under the hospital for the management of acute hypoxic respiratory failure secondary COVID-19 pneumonia. She received treatment with IV remdesivir and dexamethasone along with Actemra on April 17. Her hospital stay was prolonged because of patient requiring 100% BiPAP to high flow oxygen supplementation to maintain his saturations over 88. Her hospital stay was complicated by hypoglycemia which was treated by increasing of insulin. Infective causes of ARDS were ruled out. She was found to have yeast UTI for which she was started on Diflucan. She denied of having any dysuria. Unfortunately patient oxygenation did not improve and she continued to remain on heated high flow with FiO2 of 100% to maintain saturations over 85. Because of persistent hypoxia on 100% FiO2 further goals of care discussions were done with patient and patient's family at bedside. Family decided about comfort measures on April 29. Eventually patient on April 29, 2021 at 5:15 PM with family at bedside. Patient was comfortable. Additional Data Confirmation of as documented by pronouncing clinician: no pulse and no respirations Family: at bedside Additional persons at bedside: nursing staff Attending/PCP notified?: I am attending Was code activated?: No Autopsy requested?: No Advance directives?: No Hospice patient?: Yes Discharge Plan Discharge Patient Disposition: Home Condition: Stable Prescriptions: No Action levothyroxine 175 mcg capsule 175 mcg PO Q2D RF: 0 chlorthalidone 25 mg tablet 25 mg PO DAILY RF: 0 amlodipine 10 mg tablet 10 mg PO DAILY RF: 0 (DME) Diabetic Shoe with molded inserts See Rx Instructions .Route .MEDSUPPLY Qty: 1 RF: 0 zinc 100 mg Tablet 100 mg PO DAILY RF: 0 clonidine HCl 0.1 mg Tablet 0.5 mg PO PRN RF: 0 Aspir-81 81 mg Tablet,Delayed Release (Dr/Ec) 81 mg PO DAILY RF: 0 acetaminophen 500 mg Tablet 1,000 mg PO TID RF: 0 Refresh Tears 0.5 % Drops 4 drp OPHTHALMIC (EYE) DAILY RF: 0 Vitamin C 250 mg Tablet 250 mg PO DAILY RF: 0 fluoxetine 20 mg tablet 20 mg PO DAILY RF: 0 levothyroxine 150 mcg tablet 150 mcg PO Q2D RF: 0 losartan 100 mg tablet 50 mg PO BID RF: 0 magnesium oxide 250 mg magnesium Tablet 250 mg PO DAILY RF: 0 Vitamin D3 50 mcg (2,000 unit) Tablet 50 mcg PO DAILY RF: 0 Occuvite Vitamins 1 tab PO DAILY RF: 0 Referrals: Lee Youssef, [Primary Care Provider] - Patient Instructions: Opioid Safety DS Attestations Time Spent in /Discharge Care*: greater than 30 min Quality - AMI: AMI present?: No Clinical Trial Participant: No Quality - Stroke: CVA present?: No Symptom Onset Unknown: No Quality - VTE: VTE present?: No Deep Vein Thrombosis/Pulmonary Embolism Present on Admission: No Coding Level of Care Code Acute Signals Intelligence Analysis Manager for g Fwd Diagnoses ARDS (adult respiratory distress syndrome) J80 COVID-19 U07.1 Hypoxia R09.02 DARNELL (acute kidney injury) N17.9 Hypernatremia E87.0 BiPAP (biphasic positive airway pressure) dependence Z99.89
--- NOTE | 2021-04-29 17:19 | PC.PT ---
Physician request hold physical therapy evaluation today; will follow
--- NOTE | 2021-04-29 17:39 | PC.RESP ---
RT Shift Note Frequent safety and respiratory rounds continue. Orders completed as indicated. Patient monitored pre and post treatments throughout shift. Patient tolerated treatments appropriately. Condition Worsened. Patient and/or small business sales representative educated on respiratory treatment and medications. Patient and/or small business sales representative verbalized. Monitored patient throughout the shift, patient at approximately 1715.
== END 2021-04-29 20:00 | disposition expired | DRG 177 ==
LOC: ER 23:26 → MEDSURG 04-17 07:47 → MS 2A 04-20 16:22 → MEDSURG 04-29 15:21
PROVIDERS: Internal Medicine; Physician Assistant; Admitting Provider Student in an Organized Health Care Education/Training Program; Emergency Provider Family Medicine; PCP Family Medicine; Visit Provider Student in an Organized Health Care Education/Training Program
DX: U07.1 COVID-19 (principal); J96.01 Acute respiratory failure with hypoxia; E87.1 Hypo-osmolality and hyponatremia; B37.41 Candidal cystitis and urethritis; N17.9 Acute kidney failure, unspecified; E87.0 Hyperosmolality and hypernatremia; I10 Essential (primary) hypertension; E86.0 Dehydration; E11.65 Type 2 diabetes mellitus with hyperglycemia; Z79.82 Long term (current) use of aspirin; Z90.710 Acquired absence of both cervix and uterus; Z82.49 Family history of ischemic heart disease and other diseases of the circulatory system; Z79.890 Hormone replacement therapy; Z84.89 Family history of other specified conditions
CPT/HCPCS: 36415; 36416; 36600; 51702; 71045; 71275; 80048; 80051; 80053; 81001; 82330; 82436; 82728; 82803; 82805; 82962; 83036; 83540; 83550; 83605; 83615; 83735; 83880; 84100; 84133; 84145; 84300; 84439; 84443; 84481; 84484; 85007; 85025; 85378; 85384; 86140; 87040; 87070; 87086; 87106; 87107; 87205; 87426; 87641; 93005; 93306; 93970; 94640; 94660; 96365; 96367; 96372; 96375; 99285; C9113; J1100; J1650; J1815 ×2; J1956; J2060; J2270; J2405; J3262; J3490; J3535; J7030; J7626; Q9967